=== PATIENT | male | born 1995 | race Two or more races ===

== ENCOUNTER 2020-10-01 18:26 | Emergency (ER) | payer OTHER, SELFPAY ==
[2020-10-01 18:29] VITALS: BP 135/83; PULSE 97; RESP 20; TEMP 36.1; O2SAT 97; BMI 54.8
[2020-10-01 21:17] VITALS: BP 141/89; PULSE 105; RESP 17; TEMP 37.1; O2SAT 99
--- NOTE | 2020-10-01 22:25 | ED.SKABFB ---
HPI - Skin/Abscess/Foreign Bdy General Chief complaint: Skin/Abscess/Foreign Body Stated complaint: wound check on foot Time Seen by Provider: 10/01/20 22:25 Source: patient Mode of arrival: ambulatory History of Present Illness HPI narrative: This is a 25-year-old male who presents with concerns regarding discoloration at bilateral lateral malleoli, right greater than left, this started after he began wearing shoes that were ?higher than normal?. He denies any redness, swelling, pain at the site and denies any fevers, chills. Patient does have known bilateral great toe onychomycosis with ingrown toenails that is being followed by a local toll booth operator. Related Data Allergies Allergy/AdvReac Type Severity Reaction Status Date / Time amoxicillin [AMOXICILLIN] Allergy Mild HIVES Verified 10/01/20 21:34 shrimp Allergy Unknown HIVES Verified 10/01/20 21:34 Review of Systems Review of Systems: Pertinent positives and negatives as stated in HPI 10 point review of systems is otherwise negative. PMFSH Past Medical History Source: nursing notes reviewed Medical History No known health problems Social History Social History Smoking Status: Never smoker Use of substances other than those prescribed or required for medical reasons: No Advance Directives: No Advance Directives Information Provided: Yes Physical Exam Vital Signs: Vital Signs: Last Vital Signs Temp 98.8 F 10/01/20 21:17 Pulse 105 H 10/01/20 21:17 Resp 17 10/01/20 21:17 BP 141/89 H 10/01/20 21:17 Pulse Ox 99 10/01/20 21:17 Body Mass Index 54.8 VITAL SIGNS: Reviewed. GENERAL: Well developed, well nourished, in no acute distress. NOSE: Nares patent bilateral OROPHARYNX: no oral lesions noted, posterior pharynx clear NECK: Supple, no adenopathy LUNGS: Normal breath sounds. No adventitious sounds or accessory muscle use. SpO2<97> CARDIOVASCULAR: Regular rate and rhythm without noted murmurs ABDOMEN: Obese, Soft, non-tender, non-distended with bowel sounds. BILATERAL ANKLES: Skin darkening, dryness, hyperkeratosis secondary to rubbing from shoes, no evidence of redness, swelling, induration. BILATERAL GREAT TOES: There are bandages over the nails without obvious purulence, mild erythema NEUROLOGIC: Alert and oriented x 4. Course Course Course Narrative: This is a 25-year-old male with history and clinical presentation consistent with mild hyperkeratosis secondary to irritation from shoe choice. Patient was reassured and there is no clinical suspicion for underlying abscess, or ankle injuries. Patient was then discharged in stable condition with instructions to follow-up with his toll booth operator for further scheduling of bilateral great toe removals. Discharge Plan Discharge Clinical Impression: Hyperkeratosis Patient Disposition: Home, Self-Care Instructions: Ingrown Nail (ED) Additional Instructions: Please follow-up with your toll booth operator in the next 1-2 days for further management of your ingrown toenails. Do not hesitate to return to the emergency department should you experience any acute worsening of your symptoms. Referrals: Danna Mayfield DO [Primary Care Provider] - 2 days (Re-evaluation and co-management of ingrown toenails and potentially assist patient with coordinating toenail removal with his toll booth operator.)
== END 2020-10-01 23:06 | disposition home or self-care (01) ==
PROVIDERS: Emergency Provider Student in an Organized Health Care Education/Training Program; PCP Internal Medicine
DX: B35.1 Tinea unguium (principal)
CPT/HCPCS: 99284

== ENCOUNTER 2021-03-22 19:47 | Emergency (ER) | payer OTHER, SELFPAY ==
--- NOTE | 2021-03-22 | ECG_ITS ---
Test Reason : DIZZINESS Blood Pressure : / mmHG Vent. Rate : 084 BPM Atrial Rate : 084 BPM P-R Int : 162 ms QRS Dur : 090 ms QT Int : 350 ms P-R-T Axes : 047 007 059 degrees QTc Int : 413 ms Normal sinus rhythm Normal ECG When compared with ECG of 18-DEC-2018 11:44, No significant change was found Referred By: Lorraine Gallegos Electronically Signed By:MADELIN GALO
[2021-03-22 20:20] VITALS: BP 131/92; PULSE 88; RESP 15; TEMP 36.5; O2SAT 100; BMI 56.5
[2021-03-22 22:45] VITALS: BP 126/68; PULSE 85
[2021-03-22 22:46] VITALS: BP 131/76; PULSE 89
[2021-03-22 22:48] VITALS: BP 131/76; PULSE 86; RESP 18; TEMP 37.4; O2SAT 98
[2021-03-22 22:49] VITALS: BP 119/78; PULSE 102
[2021-03-22 22:50] VITALS: PULSE 100; RESP 15
--- NOTE | 2021-03-22 23:06 | ED.DIZZY ---
HPI - Dizziness General Chief Complaint: Dizziness Stated Complaint: Dizziness/Nausea Time Seen by Provider: 03/22/21 23:05 Source: patient Mode of arrival: ambulatory History of Present Illness HPI Narrative: 25-year-old male who presents with complaints of 2 years of experiencing dizziness with headache and nausea that occurs whenever he sleeping on his right side with his neck flexed onto the right shoulder. He states when this happens he experiences vertigo with the room spinning and this lasts a few hours. He does not vomit, does not experience neck pain, fever, chills and states that this seems to occur every couple of months and has been evaluated previously by his primary care provider. The recommendation at that time was that he change position while sleeping but no other investigations were pursued as per patient. Patient states that the dizziness has resolved since the episode occurred earlier. He denies any family history intracranial pathologies and denies any gait unsteadiness at baseline. In addition, he denies any loss of hearing. Related Data Allergies Allergy/AdvReac Type Severity Reaction Status Date / Time amoxicillin [AMOXICILLIN] Allergy Mild HIVES Verified 10/01/20 21:34 shrimp Allergy Unknown HIVES Verified 10/01/20 21:34 Review of Systems Review of Systems: Pertinent positives and negatives as stated in HPI 10 point review of systems is otherwise negative. PMFSH Past Medical History Source: nursing notes reviewed Medical History No known health problems Social History Social History Alcohol intake: never Patient Tobacco Use Status: Never used Tobacco Use of substances other than those prescribed or required for medical reasons: No Advance Directives: No Advance Directives Information Provided: No Physical Exam Vital Signs: Vital Signs: Last Vital Signs Temp 99.3 F 03/22/21 22:48 Pulse 100 03/22/21 22:50 Resp 15 03/22/21 22:50 BP 119/78 03/22/21 22:49 Pulse Ox 98 03/22/21 22:48 Body Mass Index 56.5 VITAL SIGNS: Reviewed. GENERAL: Well developed, well nourished, in no acute distress. HEAD: Normocephalic/atraumatic EYES: PERRLA, EOMI intact without pain, no nystagmus EARS: Ext canals without abnormality, TMs non-bulging and non-erythematous NOSE: Nares patent bilateral OROPHARYNX: no oral lesions noted, posterior pharynx clear LUNGS: Normal breath sounds. No adventitious sounds or accessory muscle use. SpO2<98> CARDIOVASCULAR: Regular rate and rhythm without noted murmurs ABDOMEN: Soft, non-tender, non-distended with bowel sounds. NEUROLOGIC: Alert and oriented x 4. Strength and sensation to light touch were grossly intact x 4, no pronator drift, unable to elicit similar symptoms, no evidence of dizziness when patient asked to look over his left shoulder/right shoulder or on flexion or extension. Course Course Course Narrative: 25-year-old male with history and clinical presentation with possible vascular insufficiency contributing to his symptoms, but unable to really sit and on further discussion patient refuses any lab draws or placement of an IV. Was explained to him that he will be provided with a referral to see Neurology, but he was cautioned that he may need to provide an additional referral from his primary care provider. He is otherwise hemodynamically stable and asymptomatic at this time. Discharge Plan Discharge Clinical Impression: Positional vertigo Patient Disposition: Home, Self-Care Instructions: Vertigo (ED) Additional Instructions: Follow-up with your primary care provider in the next 2-4 days. You have been provided with a neurology referral below. Return to the ER for acute worsening of your symptoms. Referrals: Ben Hernandez MD [Physician] - 2 days (25-year-old male with positional vertigo, planned for CT of head and neck but patient declined due to extensive fear of needles)
--- NOTE | 2021-03-22 23:41 | PC.NURSE ---
Patient refusing blood draw because of anxiety and he hates needles.
== END 2021-03-23 00:12 | disposition home or self-care (01) ==
PROVIDERS: Emergency Provider Student in an Organized Health Care Education/Training Program
DX: H81.13 Benign paroxysmal vertigo, bilateral (principal); R51.9 Headache, unspecified
CPT/HCPCS: 93005; 99283; 99284

== ENCOUNTER 2022-03-27 15:42 | Emergency (ER) | payer OTHER, SELFPAY ==
--- NOTE | ~2022-03-27 | XR_ITS ---
EXAMINATION: XR CHEST CLINICAL INFORMATION: Shortness of breath COMPARISON: Chest radiograph 04/12/2014 TECHNIQUE: 2 views of the chest were obtained. FINDINGS: No significant abnormality is noted involving the heart, lungs, mediastinum, bony thorax or soft tissues. XR/XR chest 2V IMPRESSION: Unremarkable examination.
[2022-03-27 17:42] VITALS: BP 138/75; PULSE 91; RESP 22; TEMP 35.7; O2SAT 98; BMI 58.8
--- NOTE | 2022-03-27 18:26 | ED_ITS ---
HPI - SOB/Dyspnea General Chief Complaint: Dyspnea Stated Complaint: SOB X Time Seen by Provider: 03/27/22 18:12 Source: patient Mode of arrival: ambulatory Limitations: no limitations History of Present Illness HPI Narrative: Patient morbidly obese 300 lb with history of sleep apnea not on CPAP machine been having sore throat feeling for last 10 days with occasional cough also some pain in the epigastric area feel little short of breath sometimes no fever or chills Related Data Previous Rx's Medication Instructions Recorded benzonatate 200 mg capsule 200 mg PO TID PRN cough #20 caps 03/27/22 Allergies Allergy/AdvReac Type Severity Reaction Status Date / Time amoxicillin [AMOXICILLIN] Allergy Mild HIVES Verified 10/01/20 21:34 shrimp Allergy Unknown HIVES Verified 10/01/20 21:34 Review of Systems Review of Systems: Yes all other systems are reviewed and are negative PMFSH Past Medical History Medical History No known health problems Social History Social History Alcohol intake: never Patient Tobacco Use Status: Never used Tobacco Use of substances other than those prescribed or required for medical reasons: No Advance Directives: No Advance Directives Information Provided: No Physical Exam Vital Signs: Vital Signs: Last Vital Signs Temp 98.6 F 03/27/22 21:25 Pulse 78 03/27/22 21:25 Resp 17 03/27/22 21:25 BP 124/62 03/27/22 21:25 Pulse Ox 99 03/27/22 21:25 O2 Del Method 03/27/22 21:25 BMI result Body Mass Index 58.8 Appearance: Alert. Oriented X3. No acute distress. Obese Eyes: PERRLA, No Nystagmus ENT: Pharynx erythematous Oral Mucosa moist Neck: Normal inspection. Neck supple. CVS: Normal heart rate and rhythm. Pulses normal. Respiratory: No respiratory distress. Equal air entry bilateral, no wheezing/rales/rhonchi Abdomen: Soft and nontender. Bowel sounds are present, no mass palpable, no CVA tenderness Skin: Skin warm and dry. Normal skin color. Normal skin turgor. Extremities: No lower extremity edema. No calf tenderness Neuro: Oriented X 3. No motor deficit. MDM - SOB/Dyspnea Lab Data Attestation: I reviewed the patient's lab results. Result diagrams: 03/27/22 18:46 03/27/22 18:46 Labs: Lab Results 03/27/22 03/27/22 03/27/22 Range/Units 18:46 18:46 18:46 WBC 10.0 (4.8-10.8) X10*3/uL RBC 5.70 (4.60-5.80) X10*6/uL Hgb 13.0 L (14.0-18.0) g/dl Hct 40.6 L (42.0-52.0) % MCV 71.2 L (80.0-98.0) fL MCH 22.8 L (27.0-33.0) pg MCHC 32.0 (31.0-36.0) g/dl RDW 15.3 (11.0-16.0) % Plt Count 362 (160-400) X10*3/uL MPV 8.7 L (9.4-12.4) fL Immature Gran % (Auto) 0.3 (0.0-0.4) % Neut % (Auto) 70.0 (45-73) % Lymph % (Auto) 19.3 L (20-40) % [place] % (Auto) 8.0 (2-11) % Eos % (Auto) 1.9 (0-4) % Baso % (Auto) 0.5 (0-2) % Lymph # (Auto) 1.9 (1.2-4.9) X10*3/uL [place] # (Auto) 0.8 (0.1-1.2) X10*3/uL Eos # (Auto) 0.2 (0.0-0.4) X10*3/uL Baso # (Auto) 0.1 (0.0-0.2) X10*3/uL Abs Immat Gran (auto) 0.03 (0.00-0.03) X10*3/uL Absolute Neuts (auto) 7.0 (2.0-8.3) x10*3/uL Absolute Nucleated RBC 0.000 (0.0-0.012) X10*3/uL Nucleated RBC % (auto) 0.0 (0.0-0.2) /100WBC Sodium 141 (135-145) mmol/L Potassium 4.1 (3.3-5.1) mmol/L Chloride 105 (96-108) mmol/L Carbon Dioxide 26 (22-29) mmol/L Anion Gap 14 (12-20) BUN 13 (9-16) mg/dL Creatinine 0.99 (0.5-1.4) mg/dL Estim Creat Clear Calc 165.6 Estimated GFR > 60 Random Glucose 92 (60-115) mg/dL Calcium 9.4 (8.4-10.2) mg/dL COVID-19 (SHARRON) Negative (Negative) COVID-19 Clin Com See Note S. pyogenes GrpA GABBY (Negative) 03/27/22 Range/Units 18:46 WBC (4.8-10.8) X10*3/uL RBC (4.60-5.80) X10*6/uL Hgb (14.0-18.0) g/dl Hct (42.0-52.0) % MCV (80.0-98.0) fL MCH (27.0-33.0) pg MCHC (31.0-36.0) g/dl RDW (11.0-16.0) % Plt Count (160-400) X10*3/uL MPV (9.4-12.4) fL Immature Gran % (Auto) (0.0-0.4) % Neut % (Auto) (45-73) % Lymph % (Auto) (20-40) % [place] % (Auto) (2-11) % Eos % (Auto) (0-4) % Baso % (Auto) (0-2) % Lymph # (Auto) (1.2-4.9) X10*3/uL [place] # (Auto) (0.1-1.2) X10*3/uL Eos # (Auto) (0.0-0.4) X10*3/uL Baso # (Auto) (0.0-0.2) X10*3/uL Abs Immat Gran (auto) (0.00-0.03) X10*3/uL Absolute Neuts (auto) (2.0-8.3) x10*3/uL Absolute Nucleated RBC (0.0-0.012) X10*3/uL Nucleated RBC % (auto) (0.0-0.2) /100WBC Sodium (135-145) mmol/L Potassium (3.3-5.1) mmol/L Chloride (96-108) mmol/L Carbon Dioxide (22-29) mmol/L Anion Gap (12-20) BUN (9-16) mg/dL Creatinine (0.5-1.4) mg/dL Estim Creat Clear Calc Estimated GFR Random Glucose (60-115) mg/dL Calcium (8.4-10.2) mg/dL COVID-19 (SHARRON) (Negative) COVID-19 Clin Com S. pyogenes GrpA GABBY Negative (Negative) Discharge Plan Discharge Clinical Impression: Viral URI with cough Patient Disposition: Home, Self-Care Instructions: Upper Respiratory Infection (ED) Additional Instructions: Likely have virus as a cause of URI Tessalon cough Perles as advised Drink plenty of fluids Prescriptions: New benzonatate 200 mg capsule 200 mg PO TID PRN (Reason: cough) Qty: 20 0RF Interventions: ED Discharge Assessment Last Done: 03/27/22 21:41 Discharge Date/Time: 03/27/22 21:47
[2022-03-27 18:50] LABS: MANUAL DIFF FLAG NO
[2022-03-27 18:52] LABS: Basophils Absolute Auto 0.1 X10*3/uL (0.0-0.2); Basophils Percent Auto 0.5 % (0-2); Eosinophils Absolute Auto 0.2 X10*3/uL (0.0-0.4); Eosinophils Percent Auto 1.9 % (0-4); Hematocrit 40.6 % (42.0-52.0); Imm Gran Abs Auto 0.03 X10*3/uL (0.00-0.03); Imm Gran Pct Auto 0.3 % (0.0-0.4); Lymphocytes Absolute Auto 1.9 X10*3/uL (1.2-4.9); Lymphocytes Percent Auto 19.3 % (20-40); Mean Corpuscular Hemoglobin 22.8 pg (27.0-33.0); Mean Corpuscular Volume 71.2 fL (80.0-98.0); Mean Platelet Volume 8.7 fL (9.4-12.4); Monocytes Absolute Auto 0.8 X10*3/uL (0.1-1.2); Platelet Count 362 X10*3/uL (160-400); Red Cell Distribution Width 15.3 % (11.0-16.0)
--- NOTE | 2022-03-27 19:03 | PC.NURSE ---
C/O THROAT PAIN AND DIFFICULTY BREATHING THROUGH HIS NOSE OVER PAST 10 DAYS. DENIES FEVERS.
[2022-03-27 19:08] LABS: Strep A Nucleic Acid Negative (Negative)
[2022-03-27 19:09] LABS: COVID-19 Test Negative (Negative); IDNOW Serial# 16C4AD1C
[2022-03-27 19:12] LABS: Anion Gap 14 (12-20); Blood Urea Nitrogen 13 mg/dL (9-16); Calcium 9.4 mg/dL (8.4-10.2); Carbon Dioxide 26 mmol/L (22-29); Chloride 105 mmol/L (96-108); Creatinine Clr Calc Pharmacy 165.6; Estimated Glomerular Filt Rate > 60; Glucose Random 92 mg/dL (60-115); Potassium 4.1 mmol/L (3.3-5.1); Sodium 141 mmol/L (135-145)
[2022-03-27 21:25] VITALS: BP 124/62; PULSE 78; RESP 17; TEMP 37; O2SAT 99
== END 2022-03-27 21:47 | disposition home or self-care (01) ==
PROVIDERS: Emergency Provider Internal Medicine; PCP Internal Medicine
DX: J06.9 Acute upper respiratory infection, unspecified (principal); R06.02 Shortness of breath; R05.9 Cough, unspecified; Z20.822 Contact with and (suspected) exposure to COVID-19; Z79.899 Other long term (current) drug therapy
CPT/HCPCS: 36415; 71046; 80048; 85025; 87635; 87651; 99284

== ENCOUNTER 2022-03-30 14:59 | Emergency (ER) | payer OTHER, SELFPAY ==
[2022-03-30 15:02] VITALS: BP 120/90; PULSE 102; O2SAT 99
[2022-03-30 16:03] VITALS: BP 137/92; PULSE 92; RESP 18; TEMP 37; O2SAT 98; BMI 61.3
[2022-03-30 20:24] VITALS: BP 135/93; PULSE 936; RESP 17; TEMP 37.1; O2SAT 95
--- NOTE | 2022-03-30 22:34 | ED.URI ---
HPI - URI/Sore Throat General Chief Complaint: Upper Respiratory Symptoms Stated Complaint: COUGH,CHEST ELADIO X'S WEEKS,SEEN FOR SAME RECENTLY Time Seen by Provider: 03/30/22 22:02 Source: patient Mode of arrival: ambulatory Limitations: no limitations History of Present Illness HPI Narrative: 26-year-old male with history generalized anxiety disorder, untreated sleep apnea, morbid obesity who presents to the ER for evaluation of shortness of breath, productive cough and increased anxiety for the last 12 days. He was seen here recently for similar symptoms on March 27 during which he had reassuring blood work, negative chest x-ray, negative COVID test as well. He was given Tessalon. He reports his symptoms have been ongoing. He had noticed a dry spot in webspace of fingers 3 and 4 on his left hand as well as a dry spot to the lateral aspect of his right eye, which made him very anxious and needed to come to the ER for re-evaluation today. Patient reports random episodes of shortness of breath throughout the day and at night when he is trying to fall asleep. He also reports cough productive of white phlegm. No fever or chills. No chest pain. No leg swelling. No known sick contacts. MD elicited complaint: cough, sore throat and nasal congestion Onset (ago): day(s) () Consistency: intermittent Severity: moderate Description of mucous: clear and watery Able to tolerate fluids by mouth: Yes Exacerbating factors: supine positioning Relieving factors: nothing Associated symptoms: nasal congestion, sore throat and cough Treatments prior to arrival: none Related Data Previous Rx's Medication Instructions Recorded benzonatate 200 mg capsule 200 mg PO TID PRN cough #20 caps 03/27/22 azithromycin 250 mg tablet See Rx Instructions PO .COMPLEX #6 03/30/22 (Zithromax Z-Norman) tabs hydroxyzine HCl 25 mg tablet 25 mg PO TID PRN anxiety #14 tabs 03/30/22 prednisone 20 mg tablet 40 mg PO DAILY #10 tabs 03/30/22 Allergies Allergy/AdvReac Type Severity Reaction Status Date / Time amoxicillin [AMOXICILLIN] Allergy Mild HIVES Verified 10/01/20 21:34 shrimp Allergy Unknown HIVES Verified 10/01/20 21:34 Review of Systems Review of Systems: Constitutional: No Fever, No Chills ENT/Mouth: + sore throat, No Rhinorrhea, No Swallowing Difficulty Eyes: No Eye Pain, No Swelling, No Redness Cardiovascular: No Chest Pain,+SOB, + Orthopnea, No Edema Respiratory: No Cough, No Sputum, No Wheezing, No dyspnea Gastrointestinal: No Nausea, No Vomiting, No abdominal Pain Musculoskeletal: No joint pain, No Myalgias Skin: +Skin Lesions, No rash Neuro: No Weakness, No Numbness, No Dizziness, No Headache Psych: + Anxiety/Panic, No Depression Heme/Lymph: No Bruising, No Lymphadenopathy PMFSH Past Medical History Medical History No known health problems Social History Social History Alcohol intake: never Patient Tobacco Use Status: Never used Tobacco Advance Directives: No Advance Directives Information Provided: No Physical Exam Vital Signs: Vital Signs: Last Vital Signs Temp 98.7 F 03/30/22 20:24 Pulse 936 H 03/30/22 20:24 Resp 17 03/30/22 20:24 BP 135/93 H 03/30/22 20:24 Pulse Ox 95 03/30/22 20:24 O2 Del Method 03/30/22 20:24 BMI result Body Mass Index 61.3 Appearance: Alert. Oriented X3. No acute distress. Eyes: Pupils equal, round and reactive to light. tiny dry patch lateral to the right right, no erythema or warmth ENT: Pharynx normal. Neck: Normal inspection. Neck supple. No LAD CVS: Normal heart rate and rhythm. Pulses normal. Respiratory: No respiratory distress. Breath sounds normal. Abdomen: Soft and nontender. +BS x4 Skin: Skin warm and dry. Normal skin color. Normal skin turgor. No rashes. Extremities: No lower extremity edema. No visualized dry skin in the web spacing of this fingers. Neuro: Oriented X 3. No motor deficit. No sensory deficit. Course Course Course Narrative: 26-year-old male presents to the ER for evaluation intermittent shortness of breath, congestion, anxiety, sore throat for the last 12 days. He is extremely anxious. he reports often cooling his symptoms and getting worked up about them. He was recently seen here for similar complaints and had a negative workup. On arrival to the ER he is hemodynamically stable and appears well. His oxygen saturations are 98%. His lungs are clear on examination. Suspect his symptoms are mostly anxiety related. He may have a component of bronchitis with a productive cough. Will give a course of Zpak and prednisone for possible bronchitis. He would also benefit from sleep study and CPAP. Will refer to Pulm. Stable for d/c home with outpatient follow up. Critical Care Time Critical Care Time Critical Care Time: No Discharge Plan Discharge Clinical Impression: Bronchitis, Anxiety Patient Disposition: Home, Self-Care Instructions: Acute Bronchitis (ED), Anxiety (ED) Additional Instructions: Take the prescribed antibiotic as directed, complete the entire course. Take prescribed medication as needed for anxiety, recommend trying this before bedtime. Recommend following up with pulmonology for a sleep study to see if you can qualify for a home CPAP. If you develop new or worsening symptoms call 911 or come back to the ER for further evaluation. Prescriptions: New prednisone 20 mg tablet 40 mg PO DAILY Qty: 10 0RF azithromycin [Zithromax Z-Norman] 250 mg tablet See Rx Instructions .ROUTE .COMPLEX Qty: 6 0RF Rx Instructions: take 500 mg today (day 1), then 250 mg for 4 days (days 2-5) hydroxyzine HCl 25 mg tablet 25 mg PO TID PRN (Reason: anxiety) Qty: 14 0RF No Action benzonatate 200 mg capsule 200 mg PO TID PRN (Reason: cough) Qty: 20 0RF Referrals: Eugene Dinero MD [Physician] - (untreated MARSHAL) Nisha Lozada MD [Primary Care Provider] - (anxiety, untreated MARSHAL)
== END 2022-03-30 22:53 | disposition home or self-care (01) ==
PROVIDERS: Emergency Provider Internal Medicine; PCP Internal Medicine
DX: J40 Bronchitis, not specified as acute or chronic (principal); F41.9 Anxiety disorder, unspecified; R06.02 Shortness of breath
CPT/HCPCS: 99282; 99283

== ENCOUNTER 2022-08-24 23:11 | Emergency (ER) | payer OTHER, SELFPAY ==
[2022-08-24 23:27] VITALS: BP 146/95; PULSE 128; RESP 18; TEMP 36.8; O2SAT 97; BMI 53.1
--- NOTE | 2022-08-24 23:36 | PC.NURSE ---
during the triage pt states he was eating at fast food places everyday and when the doctor told him he had a fatty liver pt started to eat better and has a positive weight loss. pt skin tone maxx noted to the face.
[2022-08-25 00:50] LABS: Basophils Percent Auto 0.4 % (0-2); Eosinophils Absolute Auto 0.1 X10*3/uL (0.0-0.4); Eosinophils Percent Auto 1.3 % (0-4); Hemoglobin 14.9 g/dl (14.0-18.0); Imm Gran Abs Auto 0.03 X10*3/uL (0.00-0.03); Imm Gran Pct Auto 0.3 % (0.0-0.4); Lymphocytes Absolute Auto 1.5 X10*3/uL (1.2-4.9); Lymphocytes Percent Auto 13.5 % (20-40); MANUAL DIFF FLAG NO; Mean Corpuscular HGB Conc 32.4 g/dl (31.0-36.0); Mean Corpuscular Hemoglobin 23.1 pg (27.0-33.0); Mean Corpuscular Volume 71.2 fL (80.0-98.0); Mean Platelet Volume 9.4 fL (9.4-12.4); Monocytes Percent Auto 9.1 % (2-11); Neutrophils Absolute Auto 8.1 x10*3/uL (2.0-8.3); Neutrophils Percent Auto 75.4 % (45-73); Platelet Count 358 X10*3/uL (160-400); Red Blood Count 6.46 X10*6/uL (4.60-5.80); Red Cell Distribution Width 17.5 % (11.0-16.0); White Blood Count 10.8 X10*3/uL (4.8-10.8)
[2022-08-25 01:03] LABS: Anion Gap 17 (12-20); Blood Urea Nitrogen 8 mg/dL (9-16); Calcium 10.2 mg/dL (8.4-10.2); Carbon Dioxide 22 mmol/L (22-29); Chloride 104 mmol/L (96-108); Creatinine Clr Calc Pharmacy 130.3; Estimated Glomerular Filt Rate > 60; Glucose Random 85 mg/dL (60-115); Lipase 25 U/L (8-78); Potassium 4.3 mmol/L (3.3-5.1); Sodium 139 mmol/L (135-145)
[2022-08-25 01:44] VITALS: BP 124/85; PULSE 114; RESP 14; TEMP 36.7; O2SAT 97
[2022-08-25 02:37] LABS: Influenza A PCR NEGATIVE (Negative); Influenza B PCR NEGATIVE (Negative); Resp Syncy Virus RNA Qual PCR NEGATIVE (Negative); SARS COV2 PCR INHOUSE NEGATIVE (Negative)
[2022-08-25 03:19] LABS: Appearance Urine Clear; Color Urine Yellow; Glucose Urine UA Negative (Negative); Leukocyte Esterase Urine Negative (Negative); Nitrite Urine Negative (Negative); PH 5.5 (5.0-9.0); UMIC TRIGGER UACC YES; Urine Blood Negative (Negative); Urine Ketones >=160 mg/dL (Negative); Urine Protein 100 (2+) mg/dL (Neg-Trace)
--- NOTE | 2022-08-25 03:20 | ED_ITS ---
HPI - General Adult General Chief complaint: General Medical Stated complaint: SoB, intense body pain Time Seen by Provider: 08/25/22 03:20 Source: patient Mode of arrival: ambulatory History of Present Illness HPI narrative: 27-year-old male who presents emergency department for evaluation of abdominal pain. The patient states that he developed abdominal pain on 07/31/2022. He states that he was seen 2 times at [facility]. He states he is also followed up with his PCP. Patient states that he has had an ultrasound whi ch revealed fatty liver with no gallstones, he also has a right thin walled renal cyst. The patient's doctor is been treating him with Prilosec 20 mg once a day since 08/02/2022. He states that this has improved his pain but he still is having daily epigastric pain which is worse with eating. Patient states he has had to stay on a bland diet and has lost approximately 22 lb (350 lb to 328 lb). The patient states that last night he ate the baby carrots at 18:00 hours. He states at 22:20 hours he then developed severe cramping throughout his entire abdomen. He felt like he need to pass gas. He states the pain was 9/10. States the pain eventually resolved. Related Data Previous Rx's Medication Instructions Recorded benzonatate 200 mg capsule 200 mg PO TID PRN cough #20 caps 03/27/22 azithromycin 250 mg tablet See Rx Instructions PO .COMPLEX #6 03/30/22 (Zithromax Z-Norman) tabs hydroxyzine HCl 25 mg tablet 25 mg PO TID PRN anxiety #14 tabs 03/30/22 prednisone 20 mg tablet 40 mg PO DAILY #10 tabs 03/30/22 aluminum hydrox-magnesium carb 254 10 ml PO QID PRN dyspepsia #355 mL 08/25/22 mg-237.5 mg/5 mL oral suspension (Gaviscon Extra Strength) omeprazole 20 mg capsule,delayed 40 mg PO DAILY 30 days #60 caps 08/25/22 release Allergies Allergy/AdvReac Type Severity Reaction Status Date / Time amoxicillin [AMOXICILLIN] Allergy Mild HIVES Verified 10/01/20 21:34 shrimp Allergy Unknown HIVES Verified 10/01/20 21:34 Review of Systems Review of Systems: Yes all other systems are reviewed and are negative [facility] Past Medical History [facility] Narrative: Past medical history: Anxiety, fatty liver. Past surgical history: None. Social history: He denies tobacco, alcohol and drug use. Medical History No known health problems Social History Social History Alcohol intake: never Patient Tobacco Use Status: Never used Tobacco Advance Directives: No Physical Exam ED Vital Signs: Vital Signs - 24 hr 08/24/22 23:27 08/25/22 01:44 Temperature 98.2 F 98.1 F Pulse Rate 128 H 114 H Respiratory Rate 18 14 Blood Pressure 146/95 H 124/85 Pulse Oximetry 97 97 Oxygen Delivery Method Room Air Room Air BMI result Body Mass Index 53.1 Const Other: Awake, alert, male patient, pleasant, cooperative, no distress, answers all questions appropriately, elevated BMI 53.2 HENMT Head: Yes normal to inspection, Yes normocephalic and Yes atraumatic Ears: external ears normal General nose exam: Normal external nose present Face and sinus: Yes normal facial exam Mouth: Normal oral and palatal mucosa present Throat: Yes posterior oropharynx normal Eyes General: appearance normal, both eyes and all related structures Pupils: Equal, round and reactive pupils present Neck Neck: Yes normal visual inspection, Yes no lymphadenopathy, Yes trachea midline and Yes supple Chest Chest palpation & inspection: normal inspection of the chest and normal palpation of entire chest wall Resp Effort & Inspection: normal respiratory effort and able to speak in complete sentences Auscultation: clear to auscultation bilaterally Cardio Rate: regular rate Rhythm: regular rhythm Heart sounds: S1 normal heart sound present, S2 normal heart sound present and no murmurs GI Inspection: Yes normal to inspection Palpation (GI): Soft to palpation, Tenderness to palpation present (GI) in the epigastrum (Moderate) and no guarding Auscultation: normal bowel sounds General: Yes no CVA tenderness Back/Spine/Pelvis Back: no CVA tenderness Skin General skin exam: no rashes or lesions noted Neuro Cranial nerves: Yes CN's II-XII intact bilaterally and Yes Equal, round and reactive pupils present Cognition (Neuro): normal cognition Motor exam (neuro): 5/5 motor strength present throughout Extrem General: Yes normal to inspection Psych Appearance: grossly normal Speech and movement: Normal speech and movement present Affect: normal affect Attitude: cooperative Thought process: Normal thought process present Thought content: Normal thought content present Medical Decision Making Medical Decision Making MDM Narrative: 27-year-old male who presents emergency department for evaluation of abdominal pain since 07/31/2022, he has had multiple ER visits and has seen his PCP. He had an abdominal ultrasound which revealed fatty liver with no gallstones and right kidney cyst. Patient has been taking Prilosec with some improvement of his pain. The patient's pain however got worse this evening several hours after eating baby carrots. Patient's pain did resolve by the time I evaluated him. Annie ragland had a CBC, BMP, liver panel, lipase. These tests were interpreted by me as follows: CBC was normal. BMP was normal. LFTs revealed a slight elevation is ALT of 61 otherwise were unremarkable. Urinalysis was positive for protein otherwise unremarkable. COVID-19, RSV and influenza were negative. The patient's pain is consistent with gastritis and I did discuss this with him. The patient's Prilosec will be increased from 20 mg daily to 40 mg daily. He was also prescribed Gaviscon. He was given printed and verbal instructions and discharged home. Differential Diagnosis Differential diagnosis includes was not limited to cholecystitis, gastritis, peptic ulcer disease, diverticulitis, appendicitis Lab Data MDM Lab Attestation statement: I reviewed the patient's lab results. Please see the MDM from my discussion 08/25/22 00:43 08/25/22 00:43 Labs: Lab Results 08/25/22 08/25/22 08/25/22 Range/Units 00:43 00:43 01:48 WBC 10.8 (4.8-10.8) X10*3/uL RBC 6.46 H (4.60-5.80) X10*6/uL Hgb 14.9 (14.0-18.0) g/dl Hct 46.0 (42.0-52.0) % MCV 71.2 L (80.0-98.0) fL MCH 23.1 L (27.0-33.0) pg MCHC 32.4 (31.0-36.0) g/dl RDW 17.5 H (11.0-16.0) % Plt Count 358 (160-400) X10*3/uL MPV 9.4 (9.4-12.4) fL Immature Gran % (Auto) 0.3 (0.0-0.4) % Neut % (Auto) 75.4 H (45-73) % Lymph % (Auto) 13.5 L (20-40) % [place] % (Auto) 9.1 (2-11) % Eos % (Auto) 1.3 (0-4) % Baso % (Auto) 0.4 (0-2) % Lymph # (Auto) 1.5 (1.2-4.9) X10*3/uL [place] # (Auto) 1.0 (0.1-1.2) X10*3/uL Eos # (Auto) 0.1 (0.0-0.4) X10*3/uL Baso # (Auto) 0.0 (0.0-0.2) X10*3/uL Abs Immat Gran (auto) 0.03 (0.00-0.03) X10*3/uL Absolute Neuts (auto) 8.1 (2.0-8.3) x10*3/uL Absolute Nucleated RBC 0.000 (0.0-0.012) X10*3/uL Nucleated RBC % (auto) 0.0 (0.0-0.2) /100WBC Sodium 139 (135-145) mmol/L Potassium 4.3 (3.3-5.1) mmol/L Chloride 104 (96-108) mmol/L Carbon Dioxide 22 (22-29) mmol/L Anion Gap 17 (12-20) BUN 8 L (9-16) mg/dL Creatinine 1.17 (0.5-1.4) mg/dL Estim Creat Clear Calc 130.3 Estimated GFR > 60 Random Glucose 85 (60-115) mg/dL Calcium 10.2 D (8.4-10.2) mg/dL Total Bilirubin 1.2 H (0.0-1.0) mg/dL Direct Bilirubin 0.5 (0.0-0.5) mg/dL AST 36 (5-37) U/L ALT 61 H (0-40) U/L Alkaline Phosphatase 104 (39-117) U/L Total Protein 9.2 H (6.5-8.0) g/dL Albumin 4.7 (3.5-5.0) g/dL Lipase 25 (8-78) U/L Urine Color Urine Appearance Urine pH (5.0-9.0) Ur Specific [place] (1.005-1.025) Urine Protein (Neg-Trace) mg/dL Urine Glucose (UA) (Negative) mg/dL Urine Ketones (Negative) mg/dL Urine Blood (Negative) Urine Nitrite (Negative) Ur Leukocyte Esterase (Negative) Influenza Type A (PCR) NEGATIVE (Negative) Influenza Type B (PCR) NEGATIVE (Negative) RSV RNA Qual (PCR) NEGATIVE (Negative) SARS-CoV-2 RNA (RT-PCR) NEGATIVE (Negative) 08/25/22 Range/Units 03:14 WBC (4.8-10.8) X10*3/uL RBC (4.60-5.80) X10*6/uL Hgb (14.0-18.0) g/dl Hct (42.0-52.0) % MCV (80.0-98.0) fL MCH (27.0-33.0) pg MCHC (31.0-36.0) g/dl RDW (11.0-16.0) % Plt Count (160-400) X10*3/uL MPV (9.4-12.4) fL Immature Gran % (Auto) (0.0-0.4) % Neut % (Auto) (45-73) % Lymph % (Auto) (20-40) % [place] % (Auto) (2-11) % Eos % (Auto) (0-4) % Baso % (Auto) (0-2) % Lymph # (Auto) (1.2-4.9) X10*3/uL [place] # (Auto) (0.1-1.2) X10*3/uL Eos # (Auto) (0.0-0.4) X10*3/uL Baso # (Auto) (0.0-0.2) X10*3/uL Abs Immat Gran (auto) (0.00-0.03) X10*3/uL Absolute Neuts (auto) (2.0-8.3) x10*3/uL Absolute Nucleated RBC (0.0-0.012) X10*3/uL Nucleated RBC % (auto) (0.0-0.2) /100WBC Sodium (135-145) mmol/L Potassium (3.3-5.1) mmol/L Chloride (96-108) mmol/L Carbon Dioxide (22-29) mmol/L Anion Gap (12-20) BUN (9-16) mg/dL Creatinine (0.5-1.4) mg/dL Estim Creat Clear Calc Estimated GFR Random Glucose (60-115) mg/dL Calcium (8.4-10.2) mg/dL Total Bilirubin (0.0-1.0) mg/dL Direct Bilirubin (0.0-0.5) mg/dL AST (5-37) U/L ALT (0-40) U/L Alkaline Phosphatase (39-117) U/L Total Protein (6.5-8.0) g/dL Albumin (3.5-5.0) g/dL Lipase (8-78) U/L Urine Color Yellow Urine Appearance Clear Urine pH 5.5 (5.0-9.0) Ur Specific [place] 1.020 (1.005-1.025) Urine Protein 100 (2+) H (Neg-Trace) mg/dL Urine Glucose (UA) Negative (Negative) mg/dL Urine Ketones >=160 (Negative) mg/dL Urine Blood Negative (Negative) Urine Nitrite Negative (Negative) Ur Leukocyte Esterase Negative (Negative) Influenza Type A (PCR) (Negative) Influenza Type B (PCR) (Negative) RSV RNA Qual (PCR) (Negative) SARS-CoV-2 RNA (RT-PCR) (Negative) Chronic Conditions Obesity, anxiety Discharge Plan Discharge Clinical Impression: Gastritis Qualifiers: Chronicity: acute Gastritis bleeding: without bleeding Instructions: Gastritis (ED), Diet for Stomach Ulcers and Gastritis (ED) Additional Instructions: Your blood work was unremarkable including your liver tests. Your symptoms are consistent with inflammation of your stomach caused by making too much stomach acid (gastritis) Take Prilosec (omeprazole) 20 mg pills, 2 pill once a day for 1 month. This medication shuts off your acid production and lets the inflammation in your stom ach and esophagus heal. Take extra-strength Gaviscon 10 mL (2 tsp) 4 times a day as needed for abdominal pain. Follow-up with your doctor in 2 days. Please return to the emergency department if your symptoms get worse or if you develop any symptoms that are concerning to you. Prescriptions: New omeprazole 20 mg capsule,delayed release(DR/EC) 40 mg PO DAILY 30 Days Qty: 60 0RF Gaviscon Extra Strength 254-237.5 mg/5 mL suspension 10 ml PO QID PRN (Reason: dyspepsia) Qty: 355 0RF No Action prednisone 20 mg tablet 40 mg PO DAILY Qty: 10 0RF azithromycin [Zithromax Z-Norman] 250 mg tablet See Rx Instructions .ROUTE .COMPLEX Qty: 6 0RF Rx Instructions: take 500 mg today (day 1), then 250 mg for 4 days (days 2-5) hydroxyzine HCl 25 mg tablet 25 mg PO TID PRN (Reason: anxiety) Qty: 14 0RF benzonatate 200 mg capsule 200 mg PO TID PRN (Reason: cough) Qty: 20 0RF
[2022-08-25 03:42] LABS: Alanine Aminotransferase 61 U/L (0-40); Albumin Level 4.7 g/dL (3.5-5.0); Alkaline Phosphatase 104 U/L (39-117); Aspartate Amino Transferase 36 U/L (5-37); Bilirubin Direct 0.5 mg/dL (0.0-0.5); Bilirubin Total 1.2 mg/dL (0.0-1.0); Total Protein 9.2 g/dL (6.5-8.0)
[2022-08-25 04:16] LABS: Bacteria Urine None Seen (None Seen); Granular Casts Urine Present; RBC Urine 0-2 /HPF (0-2); Squamous Epithelial Cell Urine 0-2 /HPF (0-2); WBC Urine 0-5 /HPF (0-5)
== END 2022-08-25 04:29 | disposition home or self-care (01) ==
PROVIDERS: Emergency Provider Emergency Medicine Emergency Medical Services; PCP Internal Medicine
DX: K29.00 Acute gastritis without bleeding (principal); R10.13 Epigastric pain; E66.3 Overweight; Z68.43 Body mass index [BMI] 50.0-59.9, adult; Z20.822 Contact with and (suspected) exposure to COVID-19; Z20.828 Contact with and (suspected) exposure to other viral communicable diseases
CPT/HCPCS: 0241U; 36415; 80048; 80076; 81001; 83690; 85025; 99283

== ENCOUNTER 2022-08-26 10:26 | Emergency (ER) | payer OTHER, SELFPAY ==
--- NOTE | ~2022-08-26 | CT_ITS ---
EXAMINATION: CT ABDOMEN AND PELVIS WITH CONTRAST CLINICAL INFORMATION: Epigastric pain and vomiting for one month. COMPARISON: Chest radiographs 03/27/2022, CT abdomen and pelvis noncontrast 02/09/2018 TECHNIQUE: Multidetector volumetric images were obtained from the superior aspect of the liver through the pubic symphysis following administration 100 mL of Omnipaque 350 intravenous contrast. Sagittal and coronal reformatted images were obtained on the technologist's workstation. Oral contrast: No This CT examination was performed using dose optimization techniques as appropriate, variously including the following: *Automated exposure control *Adjustment of mA and/or kV according to patient size (this includes techniques or standardized protocols for targeted exams where dose is matched to indication/reason for exam; i.e. extremities or head) *Use of iterative reconstruction technique DLP: 1826 mGy-cm FINDINGS: LUNG BASES: The visualized lung bases are unremarkable. LIVER, GALLBLADDER, AND BILIARY TREE: Liver is normal in size and smooth in contour and homogeneous. There is mild hepatic steatosis. No focal hepatic parenchymal lesion or intrahepatic ductal dilatation. The gallbladder is unremarkable with no evidence of radiopaque gallstones, gallbladder wall thickening, or obvious pericholecystic inflammatory changes. Common duct unremarkable. PANCREAS: Unremarkable. SPLEEN: Unremarkable. ADRENAL GLANDS: Unremarkable. KIDNEYS AND URETERS: The kidneys are normal in size, shape, and attenuation. No hydronephrosis, hydroureter, or calculi seen. No perinephric stranding. Incidental 1.5 cm cyst between upper and mid pole right kidney, water attenuation. No additional imaging follow-up recommended. BLADDER: Unremarkable. GASTROINTESTINAL TRACT: There is no bowel obstruction or focal inflammatory changes in the bowel. The appendix is normal. No bowel wall thickening, pneumatosis, or free air. No ascites or fluid collection. There is subtle increased attenuation in the central mesentery without vascular displacement. Scattered small mesenteric nodes are again seen in retrospect similar to prior CT 02/09/2018. Largest node is stable right mid mesentery 0.6 cm. 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 ABDOMINAL WALL: No significant ventral or inguinal hernia. LYMPH NODES: There are scattered central and left upper quadrant mesenteric nodes similar to prior CT 2018. No retroperitoneal or deep pelvic or inguinal lymphadenopathy. VASCULAR: Unremarkable. PELVIC VISCERA: Unremarkable. OSSEOUS STRUCTURES: Unremarkable. CT/CT abdomen pelvis w IV con IMPRESSION: -Chronic changes mesentery suggesting chronic mesenteric panniculitis/lipodystrophy. -No bowel obstruction or focal inflammatory changes bowel. No ascites or fluid collection. -No visible cholelithiasis. No biliary ductal dilatation. -No hydronephrosis, calculi, or perinephric stranding.
[2022-08-26 10:39] VITALS: BP 143/100; PULSE 117; RESP 19; TEMP 36.6; O2SAT 98; BMI 51.6
--- NOTE | 2022-08-26 11:40 | PC.NURSE ---
Patient presents to Ed with report of continued ABD pain which he has been seen a total of 5 times , abdomen soft non tender no guarding noted BS quad x 4 patient reports flatus. No respiratory distress or chest pain reported ambulatory from triage [facility] with purpose will CTM
--- NOTE | 2022-08-26 12:04 | ED_ITS ---
HPI - General Adult General Chief complaint: Abdominal Pain Stated complaint: Abd pain/Fast heart rate Time Seen by Provider: 08/26/22 11:55 Source: patient Limitations: no limitations History of Present Illness HPI narrative: abdominal pain for 1 month, with lightheadedness. Patient had an ultrasound that showed no stones. Claims that he has 25lbs weight loss Onset (ago): month(s) Location: abdomen Severity: moderate Quality: burning Pain Consistency: constant Exacerbating factors: none Related Data Previous Rx's Medication Instructions Recorded benzonatate 200 mg capsule 200 mg PO TID PRN cough #20 caps 03/27/22 azithromycin 250 mg tablet See Rx Instructions PO .COMPLEX #6 03/30/22 (Zithromax Z-Norman) tabs hydroxyzine HCl 25 mg tablet 25 mg PO TID PRN anxiety #14 tabs 03/30/22 prednisone 20 mg tablet 40 mg PO DAILY #10 tabs 03/30/22 aluminum hydrox-magnesium carb 254 10 ml PO QID PRN dyspepsia #355 mL 08/25/22 mg-237.5 mg/5 mL oral suspension (Gaviscon Extra Strength) omeprazole 20 mg capsule,delayed 40 mg PO DAILY 30 days #60 caps 08/25/22 release Allergies Allergy/AdvReac Type Severity Reaction Status Date / Time amoxicillin [AMOXICILLIN] Allergy Mild HIVES Verified 10/01/20 21:34 shrimp Allergy Unknown HIVES Verified 10/01/20 21:34 [facility] Past Medical History Medical History No known health problems Social History Social History Alcohol intake: never Patient Tobacco Use Status: Never used Tobacco Advance Directives: No Advance Directives Information Provided: Yes Physical Exam ED Vital Signs: Vital Signs - 24 hr 08/26/22 10:39 08/26/22 16:04 08/26/22 16:00 Temperature 98 F 98.4 F Pulse Rate 117 H 94 94 Respiratory Rate 19 16 Blood Pressure 143/100 H 127/64 128/75 Pulse Oximetry 98 98 Oxygen Delivery Method Room Air Room Air 08/26/22 16:05 08/26/22 16:06 Temperature Pulse Rate 109 H 156 H Respiratory Rate Blood Pressure 128/75 104/74 Pulse Oximetry Oxygen Delivery Method BMI result Body Mass Index 51.6 Const General: healthy appearing Nutritional Appearance: average body habitus Orientation/consciousness: oriented to person and patient oriented x3 Limitations: no limitations HENMT Head: Yes normal to inspection Ears: external ears normal General nose exam: Normal external nose present Mouth: Normal oral and palatal mucosa present and oropharynx normal Throat: Yes posterior oropharynx normal Eyes General: appearance normal, both eyes and all related structures Neck Neck: Yes normal visual inspection Chest Chest palpation & inspection: normal inspection of the chest Resp Auscultation: clear to auscultation bilaterally Cardio Jugular venous distension: no JVD Rate: regular rate Rhythm: regular rhythm Heart sounds: S1 normal heart sound present and S2 normal heart sound present GI Other: obese nontender General: Yes no CVA tenderness Back/Spine/Pelvis Back: no CVA tenderness Skin General skin exam: no rashes or lesions noted Neuro General: oriented to person and patient oriented x3 Cranial nerves: Yes CN's II-XII intact bilaterally Motor exam (neuro): 5/5 motor strength present throughout Extrem General: Yes normal to inspection Psych Appearance: grossly normal Course Reevaluation(s) Reevaluation #1: CT with chronic panniculitis, no acute findings. patient was orthostatic wll dc home Time: 17:06 Medications Administered Discontinued Medications Generic Name Dose Route Start Last Admin Trade Name Freq PRN Reason Stop Dose Admin Sodium Chloride 1,000 mls @ 500 mls/hr 08/26/22 12:15 08/26/22 14:57 Ns IVCONT 08/26/22 14:14 Infused .Q2H GLORIA Infusion Sodium Chloride 1,000 mls @ 999 mls/hr 08/26/22 16:30 08/26/22 17:14 Ns IV 08/26/22 17:30 999 mls/hr .Q1H1M GLORIA Infusion Iohexol 100 ml 08/26/22 13:18 08/26/22 13:18 Iohexol 350 Mg/Ml 100 Ml Infus..Btl IV 08/26/22 13:19 100 ml ONCE ONE Administration Medical Decision Making Differential Diagnosis gastritis, biliary colic, pancreatitis, fatty infiltration of liver Lab Data MDM Lab Attestation statement: I reviewed the patient's lab results. Independent Interpretation I performed an independent interpretation of an: EKG (sinus 94, no st or twave changes) Radiology Impression Discussion of test interpretation with radiology: I have reviewed the radiologist's reading. (chronic panniculitis, fatty infiltration of liver) Discharge Plan Discharge Clinical Impression: Abdominal pain, Fatty infiltration of liver, Orthostatic hypotension Patient Disposition: Home, Self-Care Instructions: Liver Disease Diet (DC), Non-Alcoholic Fatty Liver Disease (ED), Hypotension (ED) Prescriptions: No Action prednisone 20 mg tablet 40 mg PO DAILY Qty: 10 0RF azithromycin [Zithromax Z-Norman] 250 mg tablet See Rx Instructions .ROUTE .COMPLEX Qty: 6 0RF Rx Instructions: take 500 mg today (day 1), then 250 mg for 4 days (days 2-5) hydroxyzine HCl 25 mg tablet 25 mg PO TID PRN (Reason: anxiety) Qty: 14 0RF benzonatate 200 mg capsule 200 mg PO TID PRN (Reason: cough) Qty: 20 0RF omeprazole 20 mg capsule,delayed release(DR/EC) 40 mg PO DAILY 30 Days Qty: 60 0RF Gaviscon Extra Strength 254-237.5 mg/5 mL suspension 10 ml PO QID PRN (Reason: dyspepsia) Qty: 355 0RF Referrals: Nisha Lozada MD [Primary Care Provider] - 3 days Interventions: ED Discharge Assessment Last Done: 08/26/22 17:28 Discharge Date/Time: 08/26/22 17:28
--- NOTE | 2022-08-26 12:06 | ECG_ITS ---
Test Reason : palpitations Blood Pressure : / mmHG Vent. Rate : 094 BPM Atrial Rate : 094 BPM P-R Int : 156 ms QRS Dur : 092 ms QT Int : 330 ms P-R-T Axes : 040 -19 022 degrees QTc Int : 412 ms Normal sinus rhythm Normal ECG When compared with ECG of 22-MAR-2021 22:43, No significant change was found Referred By: Barrington Mane Electronically Signed By:Phi Miles
[2022-08-26] MEDS: 0.9 % Sodium Chloride 1,000 ML 500 ML IVCONT (12:55)
[2022-08-26] MEDS: iohexoL 350 MG/ML 100 ML INFUS..BTL IV (13:18)
--- NOTE | 2022-08-26 13:53 | PC.NURSE ---
Patient tolerating IVF no distress noted will CTM
--- NOTE | 2022-08-26 14:27 | PC.NURSE ---
Patient resting comfortably no distress noted will CTM
[2022-08-26 16:00] VITALS: BP 128/75; PULSE 94; RESP 16; TEMP 36.9; O2SAT 98
[2022-08-26 16:04] VITALS: BP 127/64; PULSE 94
[2022-08-26 16:05] VITALS: BP 128/75; PULSE 109
[2022-08-26 16:06] VITALS: BP 104/74; PULSE 156
[2022-08-26] MEDS: 0.9 % Sodium Chloride 1,000 ML 999 ML IV (16:38)
--- NOTE | 2022-08-26 17:15 | PC.NURSE ---
Verified with MD patient can leave prior to IVF finishing
== END 2022-08-26 17:28 | disposition home or self-care (01) ==
PROVIDERS: Emergency Provider Emergency Medicine; PCP Internal Medicine
DX: R10.9 Unspecified abdominal pain (principal); R00.2 Palpitations; K76.0 Fatty (change of) liver, not elsewhere classified; I95.1 Orthostatic hypotension; Z79.899 Other long term (current) drug therapy
CPT/HCPCS: 74177; 93005; 96360; 96361; 99284; Q9967

== ENCOUNTER 2023-07-27 21:04 | Emergency (ER) | payer OTHER, SELFPAY | END 2023-07-27 23:32 | disposition left against medical advice (07) | LOC: HO.ED 23:29 | PROVIDERS: Emergency Provider Emergency Medicine; PCP Internal Medicine | DX: M54.50 Low back pain, unspecified (principal); Z53.21 Procedure and treatment not carried out due to patient leaving prior to being seen by health care provider ==

== ENCOUNTER 2025-03-31 07:26 | Emergency (ER) | payer OTHER, SELFPAY ==
[2025-03-31 07:40] VITALS: BP 128/67; PULSE 78; RESP 16; TEMP 37.1; O2SAT 98; BMI 61.6
--- OUTSIDE RECORDS SUMMARY | 2025-03-31 07:52 | XMS_ITS | Encounter Summary ---
Author Organization [facility] Address [address] [place] [address] Care Team Providers Care Center Machine Operator Name Role Phone Nisha Lozada MD Primary Care Provider [phone] Encounter Details Date Type Department Care Team (Late Contact Info) Description 01/08/2025 Nurse Triage Adult Medicine [facility] [address] [place] [address] Jenny Velasco NP [address] [place], [place] Social History Tobacco Use Types Packs/Day Years Used Date Smoking Tobacco: Never Smokeless Tobacco: Never Alcohol Use Standard Drinks/Week Comments No 0 (1 standard drink = 0.6 oz pur e alcohol) Sex and Gender Information Value Date Recorded Sex Assigned at Not on file Legal Sex Male 2:32 PM EST Gender Identity Not on file Sexual Orientation Not on file documented as of this encounter Plan of Treatment Upcoming Encounters Date Type Department Care Team (Late Contact Info) Description 06/13/2025 10:00 AM EST Office Visit Adult Medicine [address] [phone] Nisha Lozada MD [address], [place] documented as of this encounter Visit Diagnoses Not on filedocumented in this encounter Care Teams Center Machine Operator Relationship Specialty Start Date End Date Nisha Lozada MD [address] [place] [address] PCP - General Internal Medicine 09/14/21 documented as of this encounter
--- OUTSIDE RECORDS SUMMARY | 2025-03-31 07:52 | XMS_ITS | Clinical Summary ---
Author Organization [facility] Address [address] [place] [address] Phone Care Team Providers Care Military Police Officer Name Role Phone Unavailable Primary Care Provider Unavailabl e Immunizations Immunization Administration Dates Next Due DTaP 5 08/24/1999, 6,02/08/1995, 995,1994 H1N1 07/29/2009 Hep B, ped/adol 05/24/1995,1994 Hib (PRP-T) 04/15/1996, 5,1994, 995 Influenza, injectable, trivalent 07/29/2009,09/2008 MMR 07/21/1998,04/15/1996 Meningococcal Conj (Menactra) MCV4P 01/16/2007 OPV 08/24/1999, 5,1994, 995 Tdap 01/16/2007 Varicella 09/23/2008,02/04/1998 Family History Relation Name Status Comments Brother Alive Brother: Alive and well Father Alive Father: nervous Half-Sister Alive adopted sister: Alive and well Mother Alive Mother: Alive a nd well Other Family history of ADD/ADHD, Family history of Diabetes mellitus, Family history of Asthma, Family history of Obesity Social History Tobacco Use Types Packs/Day Years Used Date Smoking Tobacco: Never Comments:Never smoker Sex and Gender Information Value Date Recorded Sex Assigned at Not on file Legal Sex Male 4:42 PM EDT Gender Identity Not on file Sexual Orientation Not on file Last Filed Vital Signs Vital Sign Reading Time Taken Comments Blood Pressure 130/80 12/07/2011 12:00 AM EDT Pulse - - Temperature 36.8 C (98.3 F) 04/13/2012 12:00 AM EDT Respiratory Rate - - Oxygen Saturation - - Inhaled Oxygen Concentration - - Weight 105 kg (232 lb) 04/13/2012 12:00 AM EDT Height 167.6 cm (5' 6 ) 04/05/2012 12:00 AM EDT Body Mass Index - - Plan of Treatment Health Maintenance Due Date Last Done Comments Hepatitis B Vaccines (3 of 3 - 3-dose series) 07/19/1995 05/24/1995, 1994 DTaP,Tdap,and Td Vaccines (7 - Td or Tdap) 01/16/2017 01/16/2007, 08/24/1999, 04/15/1996, Additional history exists HPV Vaccines (1 - 3-dose SCDM series) 2021 Influenza Vaccines (#1) 2025 07/29/2009, 09/23 COVID-19 Vaccine ( season) 2025 HIB Vaccines Completed 04/15/1996, 01/21, 1994, Additional history exists MMR Vaccines Completed 07/21/1998, 04/15/1996 IPV Vaccines Completed 08/24/1999, 01/21, 1994, Additional history exists Meningococcal Vaccine Aged Out 01/16/2007 No darryn valentin eligible based on patient's age to complete this topic Varicella Vaccines Completed 09/23/2008, 02/04/1998 Hepatitis A Vaccines Aged Out No long er eligible based on patient's age to complete this topic Men B Vaccine Aged Out No longer elig ible based on patient's age to complete this topic Pneumococcal Vaccine Aged Out No long er eligible based on patient's age to complete this topic
--- OUTSIDE RECORDS SUMMARY | 2025-03-31 07:52 | XMS_ITS | Clinical Summary ---
Author Organization [facility] Address [address] [facility] [address] [place] [phone] Phone Care Team Providers Care Flumer Name Role Phone [facility], [facility] Primary Care Provider Allergies Active Allergy Reactions Criticality Noted Date Comments Amoxicillin Anaphylaxis High 06/24/2017 Other Anaphylaxis High 06/24/2017 seafood Medications hydrOXYzine (ATARAX) 25 MG tablet Take 1 tablet (25 mg total) by mouth nightly at bedtime as needed for itching. 7 tablet 9 Active Additional Information Patient not taking.Reported on 11/06/2019 escitalopram oxalate (LEXAPRO) 5 MG tablet Take 5 mg by mouth daily. Takes 1/2 pill daily Active loperamide (IMODIUM) 2 mg capsule Take 1 capsule (2 mg total) by mouth 4 (four) times a day as needed for diarrhea. 30 capsule 3 Active Additional Information Patient not taking.Reported on 10/10/2024 ferrous sulfate 325 mg (65 mg [place] iron) tablet Take 325 mg by mouth daily with breakfast. 4 Active cholecalciferol (VITAMIN D3) 2,000 unit tablet Take 1,000 Units by mouth daily. Active albuterol 90 mcg/actuation inhaler Inhale 2 puffs into the lungs every 6 (six) hours as needed for wheezing or shortness of breath/dyspnea. 18 g 5 Active inhaler spacing device (AEROCHAMBER,BR EATHERITE) Spcr Inhale 1 each into the lungs every 6 (six) hours as needed (with inhaler). 1 each 5 Active Active Problems No known active problems Social History Tobacco Use Types Packs/Day Years Used Date Smoking Tobacco: Never Smokeless Tobacco: Never Alcohol Use Standard Drinks/Week Comments Yes 0 (1 standard drink = 0.6 oz pur e alcohol) occasionally Education Answer Date Recorded Are you interested in more education? Not on deon e 11/18/2022 Are you concerned about learning? Not on file 11/18/2022 No 11/18/2022 No 11/18/2022 Digital Access Answer Date Recorded No 12/16/2022 No 12/16/2022 Reliable internet access at home? Not on file 12/16/2022 Device with a working camera? Not on file Intimate Partner Violence Answer Date R ecorded Are you denied basic needs s uch as food, clothing, or medical care? No 10/10/2024 In the past 12 months have y ou been in a relationship with a person who hurts, threatens, or tries to control you? No 10/10/2024 Are you denied basic needs s uch as food, clothing, or medical care? No 10/10/2024 In the past 12 months have y ou been in a relationship with a person who hurts, threatens, or tries to control you? No 10/10/2024 Sex and Gender Information Value Date Recorded Sex Assigned at Male 07/31/2017 9:38 AM EST Legal Sex Male 8:54 PM EDT Gender Identity Male 07/31/2017 9:38 AM EST Sexual Orientation Straight 07/31/2017 9: 38 AM EST Last Filed Vital Signs Vital Sign Reading Time Taken Comments Blood Pressure 125/80 10/10/2024 2:58 PM EDT Pulse 85 10/10/2024 2:58 PM EDT Temperature 36.5 C (97.7 F) 10/10/2024 2:58 PM EDT Respiratory Rate 20 10/10/2024 2:58 PM EDT Oxygen Saturation 98% 10/10/2024 2:58 PM EDT Inhaled Oxygen Concentration - - Weight 166.3 kg (366 lb 11.2 oz) 2024 11:37 AM EDT Height 168.9 cm (5' 6.5 ) 10/10/2024 11 :37 AM EDT Body Mass Index 58.3 10/10/2024 11:37 AM EDT Plan of Treatment Health Maintenance Due Date Last Done Comments DEPRESSION SCREENING 2006 HEPATITIS C SCREENING 2012 HIV ONE-TIME SCREENING (18-65 YEARS) 2012 INFLUENZA VACCINE (#1) 2025 05/14/2018 COVID-19 VACCINE (3 - 2024- season) 2025 12/08/2020, 11/11/2020 Adult Td,Tdap Booster 08/24/2026 08/24/2016 , 01/16/2007, 08/24/1999, Additional history exists MENINGOCOCCAL VACCINES (ACWY) Aged Out 01/16/2007 No longer eligible based on patient's age to complete this topic SMOKING STATUS SCREENING (Once After 26 Yrs) Completed 10/10/2024 HEPATITIS A VACCINES Aged Out No long er eligible based on patient's age to complete this topic HIB VACCINES Aged Out No longer eligi ble based on patient's age to complete this topic MENINGOCOCCAL VACCINES (B) Aged Out N o longer eligible based on patient's age to complete this topic PNEUMOCOCCAL VACCINES (0-49 years) Aged Out No longer eligible based on patient's age to complete this topic Medical Devices Not on file Care Teams Flumer Relationship Specialty Start Date End Date [facility] [address] [place] [id number] PCP - General 09/04/17 Additional Source Comments The information contained in this document represents components of the legal health record. It is not the complete legal health record.[facility]
--- OUTSIDE RECORDS SUMMARY | 2025-03-31 07:52 | XMS_ITS | Encounter Summary ---
Author Organization [facility] Address [address] [place] [address] Phone Care Team Providers Care Molecular Modeler Name Role Phone Zainab Arellano MD Primary Care Provider [phone] Encounter Details Date Type Department Care Team (Late st Contact Info) Description 12/25/2009 Documentation EM Family Medicine [address] [place] [address] Family Medicine, Physician [address] [place], [place] [address] Social History Tobacco Use Types Packs/Day Years Used Date Smoking Tobacco: Never Assessed Sex and Gender Information Value Date Recorded Sex Assigned at Not on file Legal Sex Male 4:42 PM EDT Gender Identity Not on file Sexual Orientation Not on file documented as of this encounter Plan of Treatment Not on file documented as of this encounter Visit Diagnoses Not on filedocumented in this encounter Care Teams Molecular Modeler Relationship Specialty Start Date End Date Zainab Arellano MD [address] [place] [address] [place] [id number] PCP - General 03/03/17 10/05/22 documented as of this encounter
--- OUTSIDE RECORDS SUMMARY | 2025-03-31 07:52 | XMS_ITS | Clinical Summary ---
Author Organization [facility] [address] [facility] Address [address] [place] [phone] Phone Care Team Providers Care Mathematical Engineer Name Role Phone Nisha Lozada MD Primary Care Provider [phone] Allergies Active Allergy Reactions Criticality Noted Date Comments Amoxicillin Anaphylaxis High 04/14/2022 Shrimp Anaphylaxis High 04/14/2022 Medications ferrous sulfate 325 mg (65 mg elemental iron) tablet Take 1 tablet (325 mg total) by mouth 1 (one) time each day. 4 Active escitalopram (LEXAPRO) 5 mg tablet Take 0.5 tablets (2.5 mg total) by mouth. 2 Active cholecalciferol (VITAMIN D-3) 25 mcg (1,000 unit) tablet TAKE 1 TABLET BY MOUTH EVERY DAY 90 tablet 1 5 Active nystatin (MYCOSTATIN) 100,000 unit/gram powderIndicatio ns:Seborrheic dermatitis,Inte rtrigo Apply thin layer to affected area BID for 2 weeks then stop. 60 g 5 Active clotrimazole (LOTRIMIN) 1 % creamIndication s:Seborrheic dermatitis,Inte rtrigo Apply topically 2 (two) times a day. 113 g 5 03/14/20 25 Active Problems Problem Noted Date Diagnosed Date Morbid obesity with BMI of 6 0.0-69.9, adult (CMS/HCC V24, CMS/HCC V28) 07/09/2024 Obesity 10/02/2023 Asthma 10/02/2023 Asperger syndrome 10/02/2023 Overview (10/02/2023): neuro psych eval done in 2011. It was thought at that time that the pt did not have Aspergers but rather social anxiety, JEY and dysphoria. 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 Sickle cell trait ([facility] V24) 04/10/2020 Overview (10/02/2023): Per pt. Previously referred to hematology by colleague for abnormal platelet count and elevated rbc and total protein. Patient reports he was evaluated with hematology and advised CBC abnormalities and elevated protein consistent with sickle cell trait. Notes requested. Class 3 severe obesity due t o excess calories without serious comorbidity with body mass index (BMI) of 45.0 to 49.9 in adult ([facility] [place], [facility] V28) 02/22/2018 Encounters Date Type Department Care Team Description 02/12/2025 4:30 PM EDT Office Visit [address] [phone] Hai Slaughter PA Seborrheic dermatitis (Primary Dx); Intertrigo 01/29/2025 1:30 PM EDT Office Visit [address] [phone] Hai Slaughter PA Tinea cruris (Primary Dx) 01/15/2025 4:00 PM EDT Office Visit [address] [phone] Nisha Lozada MD Morbid obesity with BMI of 60.0-69.9, adult ([facility] [place]24, [facility] V28) (Primary Dx); Obstructive sleep apnea syndrome; Sickle cell trait ([facility] V24); Other fatigue 01/08/2025 Nurse Triage Adult Medicine [address] [phone] Jenny Velasco BANQUET MANAGER from Last 3 Months Immunizations Name Administration Dates Next Due DTaP (Infanrix) 6wks to less than 7yo ,04/15/1996,02/08/1995,12/07,1994 DTaP 5 pertussis antigens, D iptheria Tetanus acellular pertussis (Daptacel) 6wks to less than 7yo 08/24/1999,04/15/1996,02/08/1995,12/07,1994 H1N1 All Forms 07/29/2009 Hepatitis B Pediatric (Enger ix B; Recombivax HB) to less than 20 yo 05/24/1995,1994,1994 HiB PRP-T conjugate (Acthib, Hiberix) 6wks and older 04/15/1996,02/08/1995,1994,09/29 Influenza trivalent, with pr eservative (Fluzone; Afluria) 6mo and older 07/29/2009,09/23/2008 MMR, measles mumps and rubel la Live (Priorix; M-M-R II) 12mo and older 07/21/1998,04/15/1996 Meningococcal MCV4P 01/16/2007 OPV 08/24/1999, 5,1994,09/29 Td Tetanus diptheria (Tdvax) 7yo and older 08/24/2016 Tdap Tetanus diptheria acell ular pertussis (Boostrix; Adacel) 7yo and older 01/16/2007,08/24/1999,02/08/1995,12/07,1994 Varicella live (Varivax) 12m o and older 09/23/2008,02/04/1998 Surgical History Surgery Date Site/Laterality Comments OTHER SURGICAL HISTORY PROCEDURE: [place] HEARING TEST 6 MOS PRIOR TO EAR TUBE INSERTION Medical History Medical History Date Comments Obesity DX:Obesity Asperger syndrome DX:Asperger sy ndrome Asthma DX:Asthma Insomnia DX:Insomnia; COM MENT: [facility] in [facility] Family History Medical History Relation Name Comments Hypertension Father depression ADHD Depression Maternal Grandmother Other: alive and well Mother Relation Name Status Comments Father Maternal Grandmother Mother Social History Tobacco Use Types Packs/Day Years Used Date Smoking Tobacco: Never Smokeless Tobacco: Never Alcohol Use Standard Drinks/Week Comments No 0 (1 standard drink = 0.6 oz pur e alcohol) Sex and Gender Information Value Date Recorded Sex Assigned at Not on file Legal Sex Male 2:32 PM EST Gender Identity Not on file Sexual Orientation Not on file Obstetrics History Last Filed Vital Signs Vital Sign Reading Time Taken Comments Blood Pressure 134/70 02/12/2025 3:54 PM EDT Pulse 106 02/12/2025 3:54 PM EDT Temperature 35.6 C (96 F) 01/29/2025 1:16 PM EDT Respiratory Rate 20 01/15/2025 4:04 PM EDT Oxygen Saturation 98% 02/12/2025 3:54 PM EDT Inhaled Oxygen Concentration - - Weight 166 kg (367 lb) 01/29/2025 1:16 PM EDT Height 165.1 cm (5' 5 ) 02/12/2025 3:54 PM EDT Body Mass Index 61.07 01/29/2025 1:16 PM EDT Plan of Treatment Upcoming Encounters Date Type Department Care Team (Late st Contact Info) Description 06/13/2025 10:00 AM EST Office Visit Adult Medicine [facility] [address] [place] [phone] Nisha Lozada MD [address] [place] [address] Health Maintenance Due Date Last Done Comments Pneumococcal Vaccine: Pediatrics (0 to 5 Years) and At-Risk Patients (6 to 49 Years) (1 of 2 - PCV) 2013 HIV Screening 07/01/2022 Hepatitis C Screening 07/01/2022 Depression Screening 07/24/2024 Social Influencers of Health Screening 07/31/2024 07/31/2023 COVID-19 Vaccine ( season) 2025 12/08/2020, 11/11/2020 Influenza Vaccine (#1) 2025 8, 07/29/2009, 07/29/2009, Additional history exists DTaP,Tdap,and Td Vaccines (8 - Td or Tdap) 08/24/2026 08/24/2016, 01/16/2007, 08/24/1999, Additional history exists Cholesterol Screening (Lipid Panel) 08/15/2027 08/15/2022 Hepatitis B Vaccines Completed 05/24/1995, 1994, 1994 HIB Vaccines Completed 04/15/1996, 01/21, 1994, Additional history exists MMR Vaccines Completed 07/21/1998, 04/15/1996 IPV Vaccines Completed 08/24/1999, 01/21, 1994, Additional history exists Meningococcal ACWY Vaccine Aged Out 01/16/2007 N o longer eligible based on patient's age to complete this topic Varicella Vaccines Completed 09/23/2008, 02/04/1998 HPV Vaccines Aged Out No longer eligi ble based on patient's age to complete this topic Hepatitis A Vaccines Aged Out No long er eligible based on patient's age to complete this topic Meningococcal B Vaccine Aged Out No l onger eligible based on patient's age to complete this topic RSV Immunization Patients Under 20 months Aged Out No longer eligible based on patient's age to complete this topic Procedures Procedure Name Priority Date/Time Associated Diagnosis Comments LIPID PANEL Routine 08/15/2022 from Last 3 Months or Most Recently Relevant to Health Maintenance Results * Lipid panel (08/15/2022) LDL/HDL Ratio 3 Triglycerides 84 mg/dL Cholesterol 99 mg/dL HDL 32 mg/dL LDL Cholesterol 51 mg/dL Blood Venous blood specimen / Unknown Historical Provider LAB BLOOD ORDERABLES June l Result from Last 3 Months or Most Recently Relevant to Health Maintenance Insurance [facility] [employer] Care Teams Mathematical Engineer Relationship Specialty Start Date End Date Nisha Lozada MD [address] [place] [address] PCP - General Internal Medicine 09/14/21
--- OUTSIDE RECORDS SUMMARY | 2025-03-31 07:52 | XMS_ITS ---
Author Name [facility] Organization Unknown Care Team Organization Name Specialty Phone Email Start Date End Da aishwarya [facility] Loz[facility] Primary Care 05/31/2022 03/11/2024
--- OUTSIDE RECORDS SUMMARY | 2025-03-31 07:52 | XMS_ITS | Encounter Summary ---
Author Organization [facility] Address [address] [place] [address] Phone Care Team Providers Care Pearl Technician Name Role Phone Zainab Arellano MD Primary Care Provider [phone] Encounter Details Date Type Department Care Team (Late st Contact Info) Description 03/09/2017 Conversion Encounter [facility] [place] [address] [place] [address] Social History Tobacco Use Types Packs/Day Years [...] on filedocumented in this encounter Care Teams Pearl Technician Relationship Specialty Start Date End Date Zainab Arellano MD [address] [place] [address] PCP - General 03/03/17 10/05/22 documented as of this encounter
--- NOTE | 2025-03-31 08:06 | ED_ITS ---
HPI - Ear Problem General Chief complaint: Ear Problems Stated complaint: jaw pressure, ear clogging? Time Seen by Provider: 03/31/25 07:37 Source: patient Mode of arrival: ambulatory Limitations: no limitations History of Present Illness ED Provider: [facility] Narrative: Patient reports clicking in his jaws bilaterally, he does have a bit of the tick associated with open and closing his jaw, and also reports some fullness in his ears but no pain no fevers or chills and inability to see PCP or ENT Related Data Previous Rx's ?Medication ?Instructions ?Recorded benzonatate 200 mg capsule 200 mg PO TID PRN cough #20 caps 03/27/22 azithromycin 250 mg tablet See Rx Instructions PO .COM PLEX #6 03/30/22 (Zithromax Z-Norman) tabs hydroxyzine HCl 25 mg tablet 25 mg PO TID PRN anxiety #14 tabs 03/30/22 prednisone 20 mg tablet 40 mg (2 x 20 mg) PO DAILY # 10 tabs 03/30/22 aluminum hydrox-magnesium carb 254 10 ml PO QID PRN dy spepsia #355 mL 08/25/22 mg-237.5 mg/5 mL oral suspension (Gaviscon Extra Strength) omeprazole 20 mg capsule,delayed 40 mg (2 x 20 mg) PO DAILY 30 days 08/25/22 release #60 caps Allergies Allergy/AdvReac Type Severity Reaction Status Date / Time amoxicillin (AMOXICILLIN) Allergy Mild HIVES Verified 03/31/25 07:42 shrimp Allergy Unknown HIVES Verified 03/31/25 07:42 Review of Systems Constitutional: Constitutional: Reports as per [facility] Past Medical History Medical History No known health problems Social History Social History Alcohol intake: never Patient Tobacco Use Status: Never used Tobacco Advance Directives: No Advance Directives Information Provided: Yes Do you have a plan to hurt others: No Plan Physical Exam Vital Signs: Vital Signs: Last Vital Signs Temp 98.8 F 03/31/25 07:40 Pulse 78 03/31/25 07:40 Resp 16 03/31/25 07:40 BP 128/67 03/31/25 07:40 Pulse Ox 98 03/31/25 07:40 O2 Del Method Room Air 03/31/25 07:40 BMI result Body Mass Index 61.6 Const: Other: * Gen: ?Overall well-appearing patient * HEENT: PERRLA, EOMI, MMM, TMJ clicking noted, ear wax bilaterally right worse than left * Neck: Supple, no LAD * Skin: Warm, dry, intact, * Neuro: ?Alert and oriented x3, moving upper and lower extremities symmetrically, no obvious facial asymmetry noted Medical Decision Making Medical Decision Making MDM Narrative: No evidence for mastoiditis, otitis media, otitis externa, TMs obscured by ear wax but there was no clinical suspicion for underlying infection, definitely TMJ is present exacerbated by excessive tics The rest of the neck exam and oropharyngeal examination with no evidence for peritonsillar abscess or dental issues. Differential Diagnosis Differential Diagnoses: The differential diagnosis associated with the presentation includes (See above) Tests considered The following testing was considered but not selected: Mandibular x-rays Prescription Management I considered prescription management with: Pain Medication and Antibiotic Discharge Plan Discharge Clinical Impression: TMJ arthralgia, Excessive wax in both ears Patient Disposition: Home, Self-Care Additional Instructions: Look up TMJ, make sure you do not develop any tics of playing with the your jaw as it inflamed jaw, and that is probably the most important thing, and you have ear wax that you can clean at home We discussed follow up with the PCP, ENT and maybe a maxillofacial specialist Prescriptions: No Action prednisone 20 mg tablet 40 mg PO DAILY Qty: 10 0RF azithromycin [Zithromax Z-Norman] 250 mg tablet See Rx Instructions .ROUTE .COMPLEX Qty: 6 0RF Rx Instructions: take 500 mg today (day 1), then 250 mg for 4 days (days 2-5) hydroxyzine HCl 25 mg tablet 25 mg PO TID PRN (Reason: anxiety) Qty: 14 0RF benzonatate 200 mg capsule 200 mg PO TID PRN (Reason: cough) Qty: 20 0RF omeprazole 20 mg capsule,delayed release(DR/EC) 40 mg PO DAILY 30 Days Qty: 60 0RF Gaviscon Extra Strength 254-237.5 mg/5 mL suspension 10 ml PO QID PRN (Reason: dyspepsia) Qty: 355 0RF Print Language: Tajik
[2025-03-31 08:17] VITALS: BP 128/67; PULSE 78; RESP 16; TEMP 37.1; O2SAT 98
== END 2025-03-31 08:17 | disposition home or self-care (01) ==
PROVIDERS: Emergency Provider Emergency Medicine; PCP Internal Medicine
DX: M26.629 Arthralgia of temporomandibular joint, unspecified side (principal); H61.23 Impacted cerumen, bilateral
CPT/HCPCS: 99282

== ENCOUNTER 2025-04-23 14:43 | Outpatient (AMB) | payer OTHER, SELFPAY ==
[2025-04-23 14:55] VITALS: BP 122/84; PULSE 83; O2SAT 96; BMI 61.4
--- NOTE | 2025-04-23 14:55 | A.OFFVIS_ITS ---
Vital Signs 04/23/25 14:55 Height 5 ft 5 in Weight 369 lb BMI 61.4 BP 122/84 Blood Pressure Location Rt radial Position Sitting Pulse 83 Pulse Source Pulse Oximeter Pulse Oximetry (%) 96 Oxygen Delivery Method Room Air Intake Visit Reasons: Sleep apnea Allergies amoxicillin (AMOXICILLIN) Allergy (Mild, Verified 04/23/25 14:57) HIVES shrimp Allergy (Unknown, Verified 04/23/25 14:57) HIVES HPI HPI Sleep apnea: Details: Jad is a pleasant 29 year old male, never smoker, with underlying asthma, MARSHAL and morbid obesity, Asperger's syndrome. He was referred by PCP for pulmonary evaluation. He was diagnosed with sleep apnea during his teenage years but was not prescribed a CPAP machine at that time. Currently, he experiences significant daytime fatigue, severe sleep disturbances, and episodes of nocturnal dyspnea, leading to panic and fear of suffocation. The patient reports a family history of sleep apnea, with his father using a CPAP machine and an uncle who due to the condition. He has been advised by his father to pursue CPAP therapy, but reports previous healthcare providers did not facilitate this until the current referral. The patient also has a history of asthma, diagnosed in it software developer, with occasional wheezing and shortness of breath, but no current medication use. He recalls a possible hospitalization for asthma around the age of [age] . At this time he feels symptoms are controlled without the need for medication and would like to defer further testing/management. [facility] Medical History No known health problems Social History Alcohol intake: never Patient Tobacco Use Status: Never used Tobacco Review of Systems Const Denies chills, Denies excessive sweating, Denies fever(s), Denies headache(s) and Denies night sweats Eyes Denies dry eyes, Denies irritation and Denies itchy eyes ENT Reports Normal hearing present, Denies headache(s), Denies nasal congestion, Denies nasal discharge, Denies post nasal drip and Denies sore throat Card Denies chest pain, Denies chest pain at rest, Denies chest pain with activity, Denies claudication, Denies leg edema, Denies dyspnea, Denies dyspnea on exertion, Denies orthopnea and Denies paroxysmal nocturnal dyspnea Resp Denies chest congestion, Denies cough, Denies excessive phlegm production, Denies pain on inspiration, Denies pain with cough, Denies dyspnea, Denies dyspnea on exertion and Denies stridor Musc Denies myalgias Neuro Reports Normal hearing present and Denies headache(s) Endo Denies excessive sweating Prince/Lymph Denies lymphadenopathy Aller/Immun Denies itchy eyes and Denies seasonal rhinorrhea Physical Exam Vital Signs: Last Vital Signs Pulse 83 04/23/25 14:55 BP 122/84 04/23/25 14:55 Pulse Ox 96 04/23/25 14:55 Oxygen Delivery Method Room Air 04/23/25 14:55 BMI result Body Mass Index 61.4 Const General: cooperative, healthy appearing, comfortable, no acute distress, well developed and alert Nutritional Appearance: obese morbidly obese Orientation/consciousness: patient oriented x3 Limitations: no limitations HEENT Head: Yes normal to inspection, Yes normocephalic and Yes atraumatic Ears: hearing grossly normal bilaterally and external ears normal Eyes General: appearance normal, both eyes and all related structures Eyelids: Yes eyelids normal Sclerae: sclerae normal EOM: EOMs intact bilaterally Neck Neck: Yes normal visual inspection and Yes no lymphadenopathy Lymphatic: no lymphadenopathy noted Chest Chest palpation & inspection: normal inspection of the chest Resp Effort & Inspection: normal respiratory effort, able to speak in complete sentences, no audible wheezes, no cough, no stridor, not tachypneic, no tripod positioning and no use of accessory muscles Auscultation: clear to auscultation bilaterally Cardio Jugular venous distension: no JVD Rate: regular rate Rhythm: regular rhythm Skin Other: warm, dry General skin exam: no rashes or lesions noted Neuro General: patient oriented x3 Cranial nerves: Yes Normal hearing present Cognition (Neuro): normal cognition Gait exam (Neuro): Normal gait present Extrem General: Yes normal to inspection, Yes capillary refill normal, Yes no clubbing, cyanosis or edema and Yes no pedal edema Psych Appearance: grossly normal and well kempt Speech and movement: Normal speech and movement present and Clear speech present Affect: normal affect Attitude: cooperative Thought process: Normal thought process present Thought content: Normal thought content present Insight: Good insight present (Psych) Judgement: Good judgement present (Psych) Assessment & Plan Assessment & Plan (1) Daytime somnolence: Code(s): R40.0 - Somnolence Category: Medical (2) Paroxysmal nocturnal dyspnea: Code(s): R06.00 - Dyspnea, unspecified Category: Medical (3) Morbid obesity with BMI of 60.0-69.9, adult: Code(s): E66.01 - Morbid (severe) obesity due to excess calories; Z68.44 - Body mass index [BMI] 60.0-69.9, adult Category: Medical Plan Discussed with the patient the need for a home sleep study to reestablish diagnosis of obstructive sleep apnea, given the outdated nature of his previous diagnosis. We reviewed the process of obtaining and using a CPAP machine, emphasizing the importance of compliance for insurance coverage. The patient was informed about the potential need for an in-lab sleep study if severe apnea/nocturnal hypoxemia is detected. Per referral patient is being referred to weight management, BMI 61. Regarding asthma, we discussed the option of further evaluation if symptoms become more problematic, but agreed to prioritize the sleep apnea management at this time. All questions were answered and patient is in agreeement of plan. Will follow up to review results or sooner if needed. Orders: Orders RT home sleep study Today R40.0 - Somnolence Medications: Discontinued benzonatate Discontinued Reason: Patient Completed Course 200 mg PO TID PRN 20 caps 0RF cough prednisone Discontinued Reason: Patient Completed Course 40 mg (2 x 20 mg) PO DAILY 10 tabs 0RF aluminum hydrox-magnesium carb 254-237.5 mg/5 mL (Gaviscon Extra Strength) Discontinued Reason: Patient Completed Course 10 mL PO QID PRN 355 mL 0RF dyspepsia omeprazole Discontinued Reason: Patient Completed Course 40 mg (2 x 20 mg) PO DAILY 30 days 60 caps 0RF azithromycin (Zithromax Z-Norman) Discontinued Reason: Patient Completed Course take 500 mg today (day 1), then 250 mg for 4 days (days 2-5) 6 tabs 0RF hydroxyzine HCl Discontinued Reason: Patient Completed Course 25 mg PO TID PRN 14 tabs 0RF anxiety Coding Level of Care Code New Pt Level 3 (13254) Diagnoses Daytime somnolence R40.0 Paroxysmal nocturnal dyspnea R06.00 Morbid obesity with BMI of 60.0-69.9, adult E66.01; Z68.44
--- OUTSIDE RECORDS SUMMARY | 2025-04-23 15:55 | XMS_ITS | Clinical Summary ---
Author Organization [facility] [address] [facility] Address [address] [place] [id number] Phone Care Team Providers Care Biochemistry Technologist Name Role Phone Nisha Lozada MD Primary Care Provider Allergies Active Allergy Reactions [...] weeks then stop. 60 g 5 Active nystatin (MYCOSTATIN) 100,000 unit/gram powderIndicatio ns:Seborrheic dermatitis,Inte rtrigo Apply thin layer to affected area BID for 2 weeks then stop. 60 g 5 04/09/20 25 Discontinu ed(Reorder ) Active Problems Problem Noted Date Diagnosed Date [...] due to mild transaminitis. Sickle cell trait ([facility] V24) 04/10/2020 Overview (10/02/2023): Per pt. Previously [...] (BMI) of 45.0 to 49.9 in adult ([facility] V24, [facility] V28) 02/22/2018 Encounters Date Type Department Care Team Description 04/16/2025 Telephone Adult Medicine [address] [phone] Nisha Lozada MD 04/09/2025 4:30 PM EDT Office Visit Adult [address] [phone] Hai Slaughter PA Bilateral impacted cerumen (Primary Dx); Seborrheic dermatitis; Intertrigo 04/02/2025 Telephone Adult Medicine [address] [phone] Nisha Lozada MD 03/31/2025 Telephone Adult Medicine [address] [phone] Nisha Lozada MD 02/12/2025 4:30 PM EDT Office Visit Adult Medicine [address] [phone] Hai Slaughter PA Seborrheic dermatitis (Primary Dx); Intertrigo 01/29/2025 1:30 PM EDT Office Visit Adult Medicine [address] [phone] Hai Slaughter PA Tinea cruris (Primary Dx) from Last 3 Months Immunizations Immunization Administration Dates Next Due DTaP (Infanrix) 6wks [...] Date Site/Laterality Comments OTHER SURGICAL HISTORY PROCEDURE: [place] HEARING TEST 6 MOS PRIOR TO EAR TUBE INSERTION Medical History Medical History Date Comments Obesity DX:Obesity Asperger syndrome DX:Asperger sy ndrome Asthma DX:Asthma Insomnia DX:Insomnia; [facility] Family History Medical History Relation Name [...] Sign Reading Time Taken Comments Blood Pressure 113/89 04/09/2025 4:02 PM EDT Pulse 100 04/09/2025 4:02 PM EDT Temperature 35.9 C (96.7 F) 04/09/2025 4:02 PM EDT Respiratory Rate 20 01/15/2025 4:04 PM EDT Oxygen Saturation 98% 02/12/2025 3:54 PM EDT Inhaled Oxygen Concentration - - Weight 166 kg (366 lb) 04/09/2025 4:02 PM EDT Height 165.1 cm (5' 5 ) 04/09/2025 4:02 PM EDT Body Mass Index 60.91 04/09/2025 4:02 PM EDT Plan of Treatment Upcoming Encounters Date Type Department Care Team (Late st Contact Info) Description 06/13/2025 10:00 AM EST [place] [facility] [place] [address] [place] [phone] Nisha Lozada MD [address] [place] [address] Health Maintenance Due Date Last Done Comments Pneumococcal Vaccine: Pediatrics (0 to 5 Years) and At-Risk Patients (6 to 49 Years) (1 of 2 - PCV) 2013 HPV Vaccines (1 - 3-dose SCDM series) 2021 HIV Screening 07/01/2022 Hepatitis C Screening 07/01/2022 Depression Screening 07/24/2024 Social Influencers of Health Screening 07/31/2024 07/31/2023 COVID-19 Vaccine (3 - season) 2025 12/08/2020, 11/11/2020 Influenza Vaccine (#1) 2025 8, 07/29/2009, 07/29/2009, Additional history exists DTaP,Tdap,and Td Vaccines (8 - Td or Tdap) 08/24/2026 08/24/2016, 01/16/2007, 08/24/1999, Additional history exists Cholesterol Screening (Lipid Panel) 08/15/2027 08/15/2022 RSV Immunization Adult Patients (1 - 1-dose 75+ series) 2069 Hepatitis B Vaccines Completed 05/24/1995, 1994, 1994 [...] mg/dL Blood Venous blood specimen / Unknown us Historical Provider LAB BLOOD ORDERABLES June l Result from Last 3 Months or Most Recently Relevant to Health Maintenance Insurance [facility] [employer] Care Teams Biochemistry Technologist Relationship Specialty Start Date End Date Nisha Lozada MD [address] [place] [address] PCP - General Internal Medicine 09/14/21
--- OUTSIDE RECORDS SUMMARY | 2025-04-23 15:56 | XMS_ITS | Clinical Summary ---
Author Organization [facility] Address [address] [facility] [address] [place] [address] Phone Care Team Providers Care Circular Head Saw Operator Name Role Phone [facility], [facility] Primary Care Provider Allergies Active [...] 10/10/2024 ferrous sulfate 325 mg (65 mg agdaagux iron) tablet Take 325 mg by mouth [...] Medical Devices Not on file Care Teams Circular Head Saw Operator Relationship Specialty Start Date End Date [facility] [address] [place] [id number] PCP - General 09/04/17 Additional Source Comments The information contained in this document represents components of the legal health record. It is not the complete legal health record.[facility]
--- OUTSIDE RECORDS SUMMARY | 2025-04-23 15:56 | XMS_ITS | Clinical Summary ---
Author Organization [facility] Address [address] [place] [address] Phone Care Team Providers Care Layer Out Name Role Phone Unavailable Primary Care Provider [...]
--- OUTSIDE RECORDS SUMMARY | 2025-04-23 15:56 | XMS_ITS | Encounter Summary ---
Author Organization [facility] Address [address] [place] [address] Phone Care Team Providers Care Silo Filler Name Role Phone Zainab Arellano MD Primary Care Provider [phone] Encounter Details Date Type Department Care Team (Late st Contact Info) Description 12/25/2009 Documentation EM Family Medicine [address] [place] [address] Family Medicine, Physician [address] [place], [place] [address] Social History Tobacco Use Types Packs/Day Years [...] on filedocumented in this encounter Care Teams Silo Filler Relationship Specialty Start Date End Date Zainab Arellano MD [address] [place] [address] [place] [address] PCP - General 03/03/17 10/05/22 documented as of this encounter
--- OUTSIDE RECORDS SUMMARY | 2025-04-23 15:56 | XMS_ITS | Encounter Summary ---
Author Organization [facility] Address [address] [place] [address] Phone Care Team Providers Care Logging Specialist Name Role Phone Zainab Arellano MD Primary Care Provider [phone] Encounter Details Date Type Department Care Team (Late st Contact Info) Description 03/09/2017 Conversion Encounter [facility] [place] [address] [place] [address] Social History Tobacco Use Types Packs/Day Years [...] on filedocumented in this encounter Care Teams Logging Specialist Relationship Specialty Start Date End Date Zainab Arellano MD [address] [place] [address] PCP - General 03/03/17 10/05/22 documented as of this encounter
--- OUTSIDE RECORDS SUMMARY | 2025-04-23 15:56 | XMS_ITS | Encounter Summary ---
Author Organization [employer] Address [address] [place] [address] Care Team Providers Care Handy Worker Name Role Phone Nisha Lozada MD Primary Care Provider [phone] Encounter Details Date Type Department Care Team (Late Contact Info) Description 01/08/2025 Nurse Triage [facility] [address] [place] [address] Jenny Velasco NP [address] [place], [place] Social History Tobacco Use Types Packs/Day [...] 10:00 AM EST Office Visit Adult Medicine [address] [phone] Nisha Lozada MD [address] [place], [place] documented as of this encounter Visit Diagnoses Not on filedocumented in this encounter Care Teams Handy Worker Relationship Specialty Start Date End Date Nisha Lozada MD [address] [place] [address] PCP - General Internal Medicine 09/14/21 documented as of this encounter
== END 2025-04-23 15:34 | disposition home or self-care (01) ==
LOC: HO.HPSW 14:44
PROVIDERS: PCP Internal Medicine; Referring Provider Internal Medicine; Visit Provider Nurse Practitioner Family
DX: R40.0 Somnolence (principal); R06.00 Dyspnea, unspecified; E66.01 Morbid (severe) obesity due to excess calories; Z68.44 Body mass index [BMI] 60.0-69.9, adult
CPT/HCPCS: 99203

== ENCOUNTER → 2025-04-23 14:43 | Outpatient (BNVA) | payer OTHER, SELFPAY | PROVIDERS: PCP Internal Medicine; Referring Provider Internal Medicine; Visit Provider Nurse Practitioner Family | DX: R40.0 Somnolence (principal); R06.00 Dyspnea, unspecified; E66.01 Morbid (severe) obesity due to excess calories; Z68.44 Body mass index [BMI] 60.0-69.9, adult | CPT/HCPCS: 99202 ==

== ENCOUNTER 2025-05-28 16:17 | Emergency (ER) | payer OTHER, SELFPAY ==
[2025-05-28 16:30] VITALS: BP 157/94; PULSE 88; RESP 18; TEMP 36.7; O2SAT 98; BMI 59.7
--- NOTE | 2025-05-28 16:33 | ED.GENADULT ---
HPI - General Adult General Chief complaint: Wound/Laceration Stated complaint: General Medical Time Seen by Provider: 05/28/25 16:32 Source: patient Mode of arrival: ambulatory Limitations: no limitations History of Present Illness ED Provider: Joshua Kruger HPI narrative: [age] year male presents to the ED for painful lump on scalp and sheikh. Patient states occurred after wearing head sent for patricia. Negative for any neck swelling, drooling, profuse pus discharge, fever, chill, headache, dizziness, nausea or vomiting Related Data Home Medications ?Medication ?Instructions ?Recorded ?Confirmed cholecalciferol (vitamin D3) 25 25 mcg PO DAILY 04/23/25 mcg (1,000 unit) tablet clotrimazole 1 % topical cream appl topical BID 04/23/25 escitalopram oxalate 10 mg tablet 10 mg PO DAILY 04/23/25 ferrous sulfate 325 mg (65 mg 325 mg PO DAILY 04/23/25 iron) tablet (Feosol) ketoconazole 1 % shampoo (Nizoral topical DAILY PRN 04/23/25 A-D) meclizine 25 mg tablet 25 mg PO TID PRN 04/23/25 nystatin 100,000 unit/gram topical topical BID PRN 04/23/25 powder Previous Rx's ?Medication ?Instructions ?Recorded cephalexin 500 mg capsule 500 mg PO QID 7 days #28 caps 05/28/25 mupirocin 2 % topical ointment 1 appl topical TID 5 days #22 grams 05/28/25 (Centany) Allergies Allergy/AdvReac Type Severity Reaction Status Date / Time amoxicillin (AMOXICILLIN) Allergy Mild HIVES Verified 05/28/25 16:32 shrimp Allergy Unknown HIVES Verified 05/28/25 16:32 Review of Systems Review of Systems: lump on scalp and bearb Yes all other systems are reviewed and are negative PMFSH Past Medical History Medical History No known health problems Social History Social History Alcohol intake: never Patient Tobacco Use Status: Never used Tobacco Advance Directives: No Advance Directives Information Provided: No Do you have a plan to hurt others: No Plan Physical Exam ED Vital Signs: Vital Signs - 24 hr 05/28/25 16:30 05/28/25 16:53 Temperature 98.1 F 98.1 F Pulse Rate 88 88 Respiratory Rate 18 18 Blood Pressure 157/94 H 157/94 H Pulse Oximetry 98 98 Oxygen Delivery Method Room Air Room Air BMI result Body Mass Index 59.7 Const General: cooperative, healthy appearing, comfortable, no acute distress, well developed, alert, awake and Physically active Orientation/consciousness: patient oriented x3 HENMT Head: Yes normal to inspection, Yes No palpable skull fracture present, Yes normocephalic and Yes atraumatic Head images:  1. red tender area. positive for folliculitits. positive for redness and tenderness. negative for vesicular lesions, pus discharge, foul odor, or ecchymosis. Ears: hearing grossly normal bilaterally, external ears normal, TM's normal bilaterally, TM normal on the right, TM normal on the left, EAC's normal, mastoids normal and no periauricular adenopathy General nose exam: Normal external nose present, Normal nares present and No nasal polyps present Face and sinus: Yes normal facial exam, Yes sinuses nontender and Yes face symmetric Face images:  1. positive small red lump. positive follicuitits. negative for neck swelling, mass, ecchymosis, fluctulance, or pus discharge. Mouth: Normal oral and palatal mucosa present, lip normal and tongue normal Teeth and gingiva: dentition normal, gingiva normal and abnormal tooth and associated gingiva Throat: Yes posterior oropharynx normal, Yes tonsils normal and Yes uvula midline Eyes General: appearance normal, both eyes and all related structures Neck Neck: Yes normal visual inspection, Yes full ROM, Yes no lymphadenopathy, Yes no meningeal signs, Yes trachea midline, Yes supple, No anterior neck swelling and No tender Chest Chest palpation & inspection: normal inspection of the chest and normal palpation of entire chest wall Resp Effort & Inspection: normal respiratory effort and able to speak in complete sentences Auscultation: clear to auscultation bilaterally Cardio Jugular venous distension: no JVD Heart sounds: S1 normal heart sound present and S2 normal heart sound present GI Inspection: Yes normal to inspection Palpation (GI): Soft to palpation, not firm, nontender, no guarding and not rigid General: Yes no CVA tenderness Back/Spine/Pelvis Back: no CVA tenderness and No back tenderness Skin General skin exam: no rashes or lesions noted, elasticity normal and turgor normal Neuro General: patient oriented x3, gait normal, tone normal, moves all extremities, Normal light touch and pain sensation, no meningeal signs, no focal motor deficits, CN's II-XI intact bilaterally and normal sensation to monofilament Extrem General: Yes normal to inspection, Yes full ROM and Yes capillary refill normal Psych Appearance: grossly normal, well kempt and not disheveled Medical Decision Making Medical Decision Making MDM Narrative: [age] year male presents to ED for painful red lump on scalp and bottom of neck. Exam indicates folliculitis in hair and sheikh. Patient will be discharged with antibiotics. Patient is not in distress. Not suspecting abscess, shingles, osteomeylitits, retropharyngeal abscess, myra angina, strep throat, trismus, cellulitits, brain bleed, or any other life threatening etiology. Patient explained worrisome signs and informed to return to the ED. Differential Diagnosis Differential Diagnoses: The differential diagnosis associated with the presentation includes (small abscess, folliculitits, insect bite) Admission/Observation Consideration of admission/observation: Escalation of care including admission/observation considered Independent Historian Clinical information obtained from an independent historian. History obtained from or confirmed by: Other (patient) Prescription Management I considered prescription management with: Pain Medication and Antibiotic Discharge Plan Discharge Clinical Impression: Folliculitis Patient Disposition: Home, Self-Care Instructions: Folliculitis (ED) Additional Instructions: Recommend follow-up with your primary care provider. Return to the ED for any headache, nausea, vomiting, worsening redness, pus discharge, foul odor, drooling, change in voice, neck pain, neck swelling, red streaks, or any other concerning symptoms. Prescriptions: New mupirocin [Centany] 2 % ointment 1 appl topical TID 5 Days Qty: 22 0RF cephalexin 500 mg capsule 500 mg PO QID 7 Days Qty: 28 0RF No Action meclizine 25 mg tablet 25 mg PO TID PRN ferrous sulfate [Feosol] 325 mg (65 mg iron) tablet 325 mg PO DAILY nystatin 100,000 unit/gram powder topical BID PRN clotrimazole 1 % cream topical BID Nizoral A-D 1 % shampoo topical DAILY PRN escitalopram oxalate 10 mg tablet 10 mg PO DAILY cholecalciferol (vitamin D3) 25 mcg (1,000 unit) tablet 25 mcg PO DAILY Referrals: Nisha Lozada MD [Primary Care Provider, Medical] - 2 days Referral Note: FOlliculitits Clinical Impression: Folliculitis Stand Alone Forms: Work/School Release Interventions: ED Discharge Assessment Last Done: 05/28/25 16:53 Discharge Date/Time: 05/28/25 16:54 Print Language: East Timorese
[2025-05-28 16:53] VITALS: BP 157/94; PULSE 88; RESP 18; TEMP 36.7; O2SAT 98
--- OUTSIDE RECORDS SUMMARY | 2025-05-28 19:04 | XMS_ITS | Clinical Summary ---
Author Organization [facility] Address [address] [facility] [address] [place] [phone] Phone Care Team Providers Care Coal Yard Supervisor Name Role Phone [facility] Primary Care Provider Allergies Active Allergy Reactions [...] 10/10/2024 ferrous sulfate 325 mg (65 mg new [place] iron) tablet Take 325 mg by mouth [...] Medical Devices Not on file Care Teams Coal Yard Supervisor Relationship Specialty Start Date End Date [facility] [address] [place] [id number] PCP - General 09/04/17 Additional Source Comments The information contained in this document represents components of the legal health record. It is not the complete legal health record.[facility]
--- OUTSIDE RECORDS SUMMARY | 2025-05-28 19:04 | XMS_ITS | Encounter Summary ---
Author Organization [facility] Address [address] [place] [address] Phone Care Team Providers Care Candy Cutter Machine Name Role Phone Zainab Arellano MD Primary Care Provider [phone] Encounter Details Date Type Department Care Team (Late st Contact Info) Description 03/09/2017 Conversion Encounter [facility] [place] [address] [place] [address] Social History Tobacco Use Types Packs/Day Years [...] on filedocumented in this encounter Care Teams Candy Cutter Machine Relationship Specialty Start Date End Date Zainab Arellano MD [address] [place] [address] PCP - General 03/03/17 10/05/22 documented as of this encounter
--- OUTSIDE RECORDS SUMMARY | 2025-05-28 19:04 | XMS_ITS | Encounter Summary ---
Author Organization [facility] Address [address] [place] [address] Phone Care Team Providers Care Shipfitter Apprentice Name Role Phone Zainab Arellano MD Primary Care Provider [phone] Encounter Details Date Type Department Care Team (Late st Contact Info) Description 12/25/2009 Documentation EM Family Medicine [address] [place] [address] Family Medicine, Physician [address] [place], [place] [address] Social History Tobacco Use Types Packs/Day Years [...] on filedocumented in this encounter Care Teams Shipfitter Apprentice Relationship Specialty Start Date End Date Zainab Arellano MD [address] [place] [address] [place] [address] PCP - General 03/03/17 10/05/22 documented as of this encounter
--- OUTSIDE RECORDS SUMMARY | 2025-05-28 19:04 | XMS_ITS | Clinical Summary ---
Author Organization [facility] Address [address] [place] [id number] Phone Care Team Providers Care Gas Pump Attendant Name Role Phone Unavailable Primary Care Provider [...]
== END 2025-05-28 16:54 | disposition home or self-care (01) ==
PROVIDERS: Emergency Provider Emergency Medicine; PCP Internal Medicine
DX: L73.9 Follicular disorder, unspecified (principal)
CPT/HCPCS: 99282; 99283

== ENCOUNTER 2025-06-18 14:22 | Outpatient (AMB) | payer OTHER, SELFPAY ==
--- NOTE | 2025-06-18 14:25 | A.OFFVIS_ITS ---
Vital Signs 06/18/25 14:26 Height 5 ft 6 in Weight 386 lb 2 oz BMI 62.3 BP 130/74 Blood Pressure Location Rt radial Position Sitting Pulse 97 Pulse Source Pulse Oximeter Pulse Oximetry (%) 97 Oxygen Delivery Method Room Air Intake Visit Reasons: Sleep apnea Allergies amoxicillin (AMOXICILLIN) Allergy (Mild, Verified 06/18/25 14:27) HIVES shrimp Allergy (Unknown, Verified 06/18/25 14:27) HIVES HPI HPI Sleep apnea: Details: Jad is a pleasant 29 year old male, never smoker, with underlying asthma, MARSHAL and morbid obesity, Asperger's syndrome. At the last visit patient reported prior diagnosis of sleep apnea, unknown severity, and was sent for home sleep study to reestablish diagnosis as prior test was from years ago. Unfortunately, test is not been performed yet and patient with worsening symptoms suggestive of sleep apnea as well as uncontrolled asthma. Discussed sending for split night sleep study which he was agreeable to. Since last visit he reports more noticeable wheezing and shortness of breath, has albuterol MDI however . [facility] Medical History No known health problems Social History Alcohol intake: never Patient Tobacco Use Status: Never used Tobacco Review of Systems Const Denies chills, Denies excessive sweating, Denies fever(s), Denies headache(s) and Denies night sweats Eyes Denies dry eyes, Denies irritation and Denies itchy eyes ENT Reports Normal hearing present, Denies headache(s), Denies nasal congestion, Denies nasal discharge, Denies post nasal drip and Denies sore throat Card Denies chest pain, Denies chest pain at rest, Denies chest pain with activity, Denies claudication, Denies leg edema, Reports dyspnea on exertion, Denies orthopnea and Denies paroxysmal nocturnal dyspnea Resp Denies chest congestion, Denies cough, Denies hemoptysis, Denies excessive phlegm production, Denies pain on inspiration, Denies pain with cough, Reports dyspnea on exertion, Denies stridor and Reports wheezing Musc Denies myalgias Neuro Reports Normal hearing present and Denies headache(s) Endo Denies excessive sweating Prince/Lymph Denies lymphadenopathy Aller/Immun Denies itchy eyes, Denies seasonal rhinorrhea and Reports wheezing Physical Exam Vital Signs: Last Vital Signs Pulse 97 06/18/25 14:26 BP 130/74 06/18/25 14:26 Pulse Ox 97 06/18/25 14:26 Oxygen Delivery Method Room Air 06/18/25 14:26 BMI result Body Mass Index 62.3 Const General: cooperative, healthy appearing, comfortable, no acute distress, well developed and alert Nutritional Appearance: obese Orientation/consciousness: patient oriented x3 Limitations: no limitations HEENT Head: Yes normal to inspection, Yes normocephalic and Yes atraumatic Ears: hearing grossly normal bilaterally and external ears normal Eyes General: appearance normal, both eyes and all related structures Eyelids: Yes eyelids normal Sclerae: sclerae normal EOM: EOMs intact bilaterally Neck Neck: Yes normal visual inspection and Yes no lymphadenopathy Lymphatic: no lymphadenopathy noted Chest Chest palpation & inspection: normal inspection of the chest Resp Effort & Inspection: normal respiratory effort, able to speak in complete sentences, no audible wheezes, no cough, no stridor, not tachypneic, no tripod positioning and no use of accessory muscles Auscultation: clear to auscultation bilaterally Cardio Jugular venous distension: no JVD Rate: regular rate Rhythm: regular rhythm Skin Other: warm, dry General skin exam: no rashes or lesions noted Neuro General: patient oriented x3 Cranial nerves: Yes Normal hearing present Cognition (Neuro): normal cognition Gait exam (Neuro): Normal gait present Extrem General: Yes normal to inspection, Yes capillary refill normal, Yes no clubbing, cyanosis or edema and Yes no pedal edema Psych Appearance: grossly normal and well kempt Speech and movement: Normal speech and movement present and Clear speech present Affect: normal affect Attitude: cooperative Thought process: Normal thought process present Thought content: Normal thought content present Insight: Good insight present (Psych) Judgement: Good judgement present (Psych) Assessment & Plan Assessment & Plan (1) Daytime somnolence: Code(s): R40.0 - Somnolence Category: Medical (2) Paroxysmal nocturnal dyspnea: Code(s): R06.00 - Dyspnea, unspecified Category: Medical (3) Morbid obesity with BMI of 60.0-69.9, adult: Code(s): E66.01 - Morbid (severe) obesity due to excess calories; Z68.44 - Body mass index [BMI] 60.0-69.9, adult Category: Medical (4) Asthma: Code(s): J45.909 - Unspecified asthma, uncomplicated Category: Medical Plan Patient reports worsening controlled asthma with albuterol MDI, however , will refill. Will also start Arnuity and discussed importance of good oral hygiene to prevent thrush. Will send for PFT to assess severity of obstructive defect as well as RAST to assess for an allergic component. Patient with prior diagnosis of MARSHAL, continues to await home sleep study however reports worsening symptoms. Will send for in-lab sleep study and if patient meets criteria recommending split night study. All questions were answered and patient is in agreement of plan. Will follow up to review results or sooner if needed. Orders: Orders Resp Allergy Profile Region I Today Z91.09 - Other allergy status, other than to drugs and biological substances PFT pulmonary function test Today J45.909 - Unspecified asthma, uncomplicated Complete Blood Count Auto Diff Today Z91.09 - Other allergy status, other than to drugs and biological substances Immunoglobulin E Today Z91.09 - Other allergy status, other than to drugs and biological substances RT PSG in-lab sleep study Today E66.01 - Morbid (severe) obesity due to excess calories, R06.00 - Dyspnea, unspecified, R40.0 - Somnolence, Z68.44 - Body mass index [BMI] 60.0-69.9, adult Medications: New fluticasone furoate 100 mcg/actuation (Arnuity Ellipta) 1 inh inhalation DAILY 30 ea 3RF albuterol sulfate 90 mcg/actuation 2 puffs inhalation Q4-6H PRN 1 ea 3RF shortness of breath or wheezing J45.909 - Unspecified asthma, uncomplicated Coding Level of Care Code Est Pt Level 4 (66121) Diagnoses Daytime somnolence R40.0 Paroxysmal nocturnal dyspnea R06.00 Morbid obesity with BMI of 60.0-69.9, adult E66.01; Z68.44 Asthma J45.909
[2025-06-18 14:26] VITALS: BP 130/74; PULSE 97; O2SAT 97; BMI 62.3
--- OUTSIDE RECORDS SUMMARY | 2025-06-18 17:14 | XMS_ITS | Clinical Summary ---
Author Organization [facility] Address [address] [place] [phone] Phone Care Team Providers Care Rounding Machine Operator Name Role Phone [facility] Primary Care Provider Allergies Active Allergy [...] 10/10/2024 ferrous sulfate 325 mg (65 mg confederated goshute iron) tablet Take 325 mg by mouth [...] Medical Devices Not on file Care Teams Rounding Machine Operator Relationship Specialty Start Date End Date [facility] [address] [place] [phone] PCP - General 09/04/17 Additional Source Comments The information contained in this document represents components of the legal health record. It is not the complete legal health record.[facility]
--- OUTSIDE RECORDS SUMMARY | 2025-06-18 17:14 | XMS_ITS | Clinical Summary ---
Author Organization [facility] Address [address] [place] [phone] Phone Care Team Providers Care Print Journalist Name Role Phone Unavailable Primary Care Provider [...]
--- OUTSIDE RECORDS SUMMARY | 2025-06-18 17:14 | XMS_ITS | Encounter Summary ---
Author Organization [facility] Address [address] [place] [address] Phone Care Team Providers Care Managed Care Liaison Name Role Phone Zainab Arellano MD Primary Care Provider Encounter Details Date Type Department Care Team (Late st Contact Info) Description 03/09/2017 Conversion Encounter [facility] [place] [address] [place] [address] Social History Tobacco Use Types Packs/Day Years [...] on filedocumented in this encounter Care Teams Managed Care Liaison Relationship Specialty Start Date End Date Zainab Arellano MD [address] [place] [address] PCP - General 03/03/17 10/05/22 documented as of this encounter
--- OUTSIDE RECORDS SUMMARY | 2025-06-18 17:14 | XMS_ITS | Encounter Summary ---
Author Organization [facility] Address [address] [place] [phone] Phone Care Team Providers Care City Attorney Name Role Phone Zainab Arellano MD Primary Care Provider [phone] Encounter Details Date Type Department Care Team (Late st Contact Info) Description 12/25/2009 Documentation [facility] [address] [place] [address] Family Medicine, Physician [address] [place], [place] [id number] Social History Tobacco Use Types Packs/Day Years [...] on filedocumented in this encounter Care Teams City Attorney Relationship Specialty Start Date End Date Zainab Arellano MD [address] [place] [address] [place] [address] PCP - General 03/03/17 10/05/22 documented as of this encounter
== END 2025-06-18 14:47 | disposition home or self-care (01) ==
LOC: HO.HPSW 14:22
PROVIDERS: PCP Internal Medicine; Visit Provider Nurse Practitioner Family
DX: R40.0 Somnolence (principal); R06.00 Dyspnea, unspecified; E66.01 Morbid (severe) obesity due to excess calories; Z68.44 Body mass index [BMI] 60.0-69.9, adult; J45.909 Unspecified asthma, uncomplicated
CPT/HCPCS: 99214

== ENCOUNTER → 2025-06-18 14:22 | Outpatient (BNVA) | payer OTHER, SELFPAY | PROVIDERS: PCP Internal Medicine; Visit Provider Nurse Practitioner Family | DX: J45.909 Unspecified asthma, uncomplicated (principal); R40.0 Somnolence; R06.00 Dyspnea, unspecified; E66.01 Morbid (severe) obesity due to excess calories; Z68.44 Body mass index [BMI] 60.0-69.9, adult | CPT/HCPCS: 99212 ==